=== PATIENT | male | born 2000 | race Caucasian/White ===

== ENCOUNTER 2023-06-25 13:22 | Inpatient (IN) | payer MEDICAID, SELFPAY ==
[2023-06-25] VITALS (8 sets, daily range): BP systolic 114–146; BP diastolic 64–93; PULSE 105–135; RESP 17–20; TEMP 37.3–39.4; O2SAT 94–100; BMI 36.7
--- NOTE | 2023-06-25 | ECG_ITS ---
Test Reason : fever Blood Pressure : / mmHG Vent. Rate : 126 BPM Atrial Rate : 126 BPM P-R Int : 148 ms QRS Dur : 090 ms QT Int : 288 ms P-R-T Axes : 049 020 028 degrees QTc Int : 417 ms Sinus tachycardia Nonspecific T wave abnormality Borderline ECG No previous ECGs available Referred By: Sabrina Barry Electronically Signed By:GUERLINE GOLD
--- NOTE | ~2023-06-25 | CT_ITS ---
EXAMINATION: CT ABDOMEN AND PELVIS WITH CONTRAST CLINICAL INFORMATION: Abdominal pain and bloody stool COMPARISON: None available. TECHNIQUE: Multidetector volumetric images were obtained from the superior aspect of the liver through the pubic symphysis following administration 85 mL of Omnipaque 350 intravenous contrast. Sagittal and coronal reformatted images were obtained on the technologist's workstation. Oral contrast: No This CT examination was performed using dose optimization techniques as appropriate, variously including the following: *Automated exposure control *Adjustment of mA and/or kV according to patient size (this includes techniques or standardized protocols for targeted exams where dose is matched to indication/reason for exam; i.e. extremities or head) *Use of iterative reconstruction technique DLP: 695 mGy-cm FINDINGS: LUNG BASES: The visualized lung bases are unremarkable. LIVER, GALLBLADDER, AND BILIARY TREE: The liver is normal in size, shape, and attenuation. No focal hepatic lesion or biliary ductal dilatation is present. The gallbladder is unremarkable with no evidence of radiopaque gallstones, gallbladder wall thickening, or obvious pericholecystic inflammatory changes. PANCREAS: Unremarkable. SPLEEN: Unremarkable. ADRENAL GLANDS: Unremarkable. KIDNEYS AND URETERS: The kidneys are normal in size, shape, and attenuation. No hydronephrosis, hydroureter, or calculi seen. No perinephric stranding. BLADDER: Unremarkable. GASTROINTESTINAL TRACT: The large and small bowel are normal in caliber. Hyperdense material noted within the ascending colon, hepatic flexure, and sigmoid colon. ABDOMINAL WALL: No significant hernia is appreciated. LYMPH NODES: Normal. VASCULAR: Unremarkable. PELVIC VISCERA: Unremarkable. OSSEOUS STRUCTURES: Unremarkable. CT/CT abdomen pelvis w IV con IMPRESSION: Hyperdense material noted within the ascending colon, hepatic flexure, and sigmoid colon. This is favored to be ingested material given the distribution; however, GI bleed cannot be completely excluded based on a single phase of contrast. Fleischner guidelines were followed.
--- NOTE | 2023-06-25 13:44 | ED.ABDPAIN ---
HPI - Abdominal Pain General Chief Complaint: Abdominal Pain Stated Complaint: Fever, abd pain, blood in stool Time Seen by Provider: 06/25/23 15:36 Source: patient and RN notes reviewed Mode of arrival: ambulatory Limitations: no limitations History of Present Illness HPI narrative: This is a 23-year-old male, with no known medical problems, who presents emergency department with complaints of chills, body aches, diarrhea, and diffuse abdominal pain since this morning. Patient states that yesterday he ate a taco as well as pizza and shortly after developed his symptoms. He states that this morning he woke up and has had multiple episodes of abdominal cramping, chills, body aches, and diarrhea. He denies any known fevers, chest pain, shortness of breath, cough, congestion, urinary symptoms. He states that he has had multiple episodes of bright red blood in his stool. Mother states family history of diverticulosis. No sick contacts. No other complaints or concerns at this time. MD elicited complaint: abdominal pain Pertinent past history: none Onset (ago): day(s) Pain Consistency: constant Location: diffuse Severity: moderate Quality: cramping Radiation: none Exacerbating factors: nothing Relieving factors: nothing Associated symptoms: diarrhea Related Data Home Medications ?Medication ?Instructions ?Recorded ?Confirmed No Known Home Meds 06/26/23 06/26/23 Allergies Allergy/AdvReac Type Severity Reaction Status Date / Time nut - unspecified Allergy Unknown Verified 06/25/23 13:46 Review of Systems Review of Systems Yes all other systems are reviewed and are negative Constitutional: Reports as per [facility] Social History Social History Patient Tobacco Use Status: Never used Tobacco Smoked in Last 30 Days: No Use of substances other than those prescribed or required for medical reasons: No Advance Directives: No Advance Directives Information Provided: No Nutrition Risks: No Nutritional Risk Physical Exam ED Vital Signs: Vital Signs - 24 hr 06/25/23 13:44 06/25/23 18:07 06/25/23 18:44 Temperature 99.2 F 102.9 F H 101.5 F H Pulse Rate 105 H 118 H 135 H Respiratory Rate 18 20 Blood Pressure 144/93 H 146/89 H 138/64 Pulse Oximetry 95 97 97 Oxygen Delivery Method Room Air Room Air Room Air 06/25/23 19:44 Temperature 100.2 F Pulse Rate 118 H Respiratory Rate 18 Blood Pressure Pulse Oximetry Oxygen Delivery Method BMI result Body Mass Index 36.7 Const General: cooperative, comfortable and no acute distress Orientation/consciousness: patient oriented x3 Limitations: no limitations HENMT Head: Yes normal to inspection, Yes normocephalic and Yes atraumatic Ears: hearing grossly normal bilaterally General nose exam: Normal external nose present Face and sinus: Yes normal facial exam Mouth: Normal oral and palatal mucosa present, oropharynx normal and moist mucous membranes Throat: Yes posterior oropharynx normal Eyes General: appearance normal, both eyes and all related structures Eyelids: Yes eyelids normal Conjunctivae: conjunctivae normal Sclerae: sclerae normal Pupils: Equal, round and reactive pupils present EOM: EOMs intact bilaterally Neck Neck: Yes normal visual inspection, Yes full ROM and Yes no lymphadenopathy Lymphatic: no lymphadenopathy noted Chest Chest palpation & inspection: normal inspection of the chest Resp Effort & Inspection: normal respiratory effort and able to speak in complete sentences Auscultation: clear to auscultation bilaterally, no crackles, no rales, no rhonchi and no wheezes Cardio Rate: regular rate Rhythm: regular rhythm Heart sounds: S1 normal heart sound present and S2 normal heart sound present GI Other: Diffuse lower abdominal pain noted, no rebound or guarding. Hypoactive bowel sounds present. Rectal examination performed with Susie silva tech Rectal exam with out any external hemorrhoids noted, light brown stool noted. No bloody stool noted. Inspection: Yes normal to inspection Skin General skin exam: no rashes or lesions noted Trauma: no lacerations or abrasions Wounds: no wounds Neuro General: patient oriented x3 and moves all extremities Cranial nerves: Yes Equal, round and reactive pupils present Extrem General: Yes normal to inspection Right upper extremity: normal to inspection Left upper extremity: normal to inspection Right lower extremity: normal to inspection Left lower extremity: normal to inspection Course Course Course Narrative: This is an RME: Additional HPI, ROS, PE not included below will be deferred to primary provider. Patient is a 23-year-old male who presents emergency department reporting he awoke this morning with chills, diarrhea; soft/watery stool, trialed Pepto-Bismol and Tylenol without any improvement. He reports noticing dark red blood in his stool. Has associated diffuse lower ABD pain. Reports yesterday having a slice of pizza and afternoon and a taco from [employer] at night. Denies any known sick contacts. Plan: Labs, viral testing Reevaluation(s) Reevaluation #1: He was brought to my attention that patient became febrile at 102.9, and tachycardic. Tachycardia likely due to fever, will treat with IV fluids as well as Tylenol. Infection not suspected. Patient remains nontoxic appearing, will also obtain stool occult. CT scan still pending Time: 18:10 Reevaluation #2: Patient is still febrile at 101.5, tachycardic at 135, will obtain blood cultures and lactic. Again tachycardia is likely due to fever. Rectal exam performed, no bright red blood per rectum, will send stool sample down for testing. Time: 18:44 Reevaluation #3: CT scan showing hyperdense material noted within the ascending colon, hepatic flexure and sigmoid colon. Favored to be ingested material however GI bleed can not be completely excluded based on a single phase of contrast. Stool occult positive. Time: 19:41 Additional Reevaluation(s): 1915 -I examined the stool as patient was to provide stool sample, it is not black or bloody, it is watery, and dark brown. Case reviewed with supervising physician, Dr. Hoyt, who recommends starting on azithromycin for infectious diarrhea. Does not appear to be a GI bleed as rectal examination showed light brown stool. Patient's vitals have improved, however still tachycardic. He is well appearing, feeling much better, howevr will order 3rd L of IV fluids. Stool culture and C diff panel ordered. Sign-out given to my colleague, Sowmya Hanna pending re-eval, c dif, and crp. Consultations Consultation #1: [id number]-- I received patient in sign-out pending re-evaluation, C diff and CRP. On re-evaluation, patient ill-appearing, tremulous, complaining of the chills. C diff gene negative. CRP WNL. He is now febrile to 102.2F and tachycardic to 127. Discussed case with Dr. Barry and my attending physical who both agree with admission to medicine for further evaluation and IV antibiotics. Discussed disposition with both patient and his parents. They are all agreeable. Admission orders placed. Medical Decision Making Medical Decision Making [facility] Narrative: This is a 23-year-old male, with no known medical problems, who presents emergency department for evaluation of abdominal pain, cramping, body aches, subjective fevers and chills since this morning. Patient states that he ate pizza as well as taco last night and woke up this morning with chills, body aches, diarrhea, and blood in his stool. Given slight lower abdominal tenderness, will order abdomen CT to rule out any sort of intra-abdominal process. Differential diagnoses include appendicitis, gastroenteritis, gastritis, diverticulitis, diverticulosis. Less likely small bowel obstruction, GI bleed. Plan: Labs, CT abdomen, viral swabs Differential Diagnosis Differential Diagnoses: The differential diagnosis associated with the presentation includes Gastroenteritis, gastritis, GI bleed-unlikely, viral syndrome Admission/Observation Consideration of admission/observation: Escalation of care including admission/observation considered Escalation of care including admission/observation considered however given workup today not warranted at this time. Lab Data [facility] Lab Attestation statement: I reviewed the patient's lab results. Slight leukocytosis at 13.9, electrolytes within normal limits. Influenza a, RSV, COVID negative. 06/26/23 05:39 06/26/23 05:39 Labs: Lab Results 06/25/23 06/25/23 06/25/23 Range/Units 13:53 18:42 19:10 WBC 13.9 H (4.8-10.8) X10*3/uL RBC 5.92 H (4.60-5.80) X10*6/uL Hgb 16.5 (14.0-18.0) g/dl Hct 49.7 (42.0-52.0) % MCV 84.0 (80.0-98.0) fL MCH 27.9 (27.0-33.0) pg MCHC 33.2 (31.0-36.0) g/dl RDW 13.2 (11.0-16.0) % Plt Count 208 (160-400) X10*3/uL MPV 10.3 (9.4-12.4) fL Immature Gran % (Auto) 0.3 (0.0-0.4) % Neut % (Auto) 81.8 H (45-73) % Lymph % (Auto) 9.1 L (20-40) % Carolina % (Auto) 7.7 (2-11) % Eos % (Auto) 0.6 (0-4) % Baso % (Auto) 0.5 (0-2) % Lymph # (Auto) 1.3 (1.2-4.9) X10*3/uL Carolina # (Auto) 1.1 (0.1-1.2) X10*3/uL Eos # (Auto) 0.1 (0.0-0.4) X10*3/uL Baso # (Auto) 0.1 (0.0-0.2) X10*3/uL Abs Immat Gran (auto) 0.04 H (0.00-0.03) X10*3/uL Absolute Neuts (auto) 11.3 H (2.0-8.3) x10*3/uL Absolute Nucleated RBC 0.000 (0.0-0.012) X10*3/uL Nucleated RBC % (auto) 0.0 (0.0-0.2) /100WBC Sodium 140 (135-145) mmol/L Potassium 4.2 (3.3-5.1) mmol/L Chloride 107 (96-108) mmol/L Carbon Dioxide 26 (22-29) mmol/L Anion Gap 11 L (12-20) BUN 12 (9-16) mg/dL Creatinine 0.78 (0.5-1.4) mg/dL Estim Creat Clear Calc 171.1 Estimated GFR > 60 Random Glucose 87 (60-115) mg/dL Lactic Acid 1.3 (0.5-2.0) mmol/L Calcium 9.5 (8.4-10.2) mg/dL Total Bilirubin 0.8 (0.0-1.0) mg/dL AST 20 (5-37) U/L ALT 15 (0-40) U/L Alkaline Phosphatase 65 (39-117) U/L C-Reactive Protein 0.41 (< or = 0.50) mg/dL Total Protein 7.6 (6.5-8.0) g/dL Albumin 4.3 (3.5-5.0) g/dL Stool Occult Blood POSITIVE (NEGATIVE) C. difficile Tox B Gene (Negative) Influenza Type A (PCR) NEGATIVE (Negative) Influenza Type B (PCR) NEGATIVE (Negative) RSV RNA Qual (PCR) NEGATIVE (Negative) SARS-CoV-2 RNA (RT-PCR) NEGATIVE (Negative) 06/25/23 Range/Units 20:11 WBC (4.8-10.8) X10*3/uL RBC (4.60-5.80) X10*6/uL Hgb (14.0-18.0) g/dl Hct (42.0-52.0) % MCV (80.0-98.0) fL MCH (27.0-33.0) pg MCHC (31.0-36.0) g/dl RDW (11.0-16.0) % Plt Count (160-400) X10*3/uL MPV (9.4-12.4) fL Immature Gran % (Auto) (0.0-0.4) % Neut % (Auto) (45-73) % Lymph % (Auto) (20-40) % Carolina % (Auto) (2-11) % Eos % (Auto) (0-4) % Baso % (Auto) (0-2) % Lymph # (Auto) (1.2-4.9) X10*3/uL Carolina # (Auto) (0.1-1.2) X10*3/uL Eos # (Auto) (0.0-0.4) X10*3/uL Baso # (Auto) (0.0-0.2) X10*3/uL Abs Immat Gran (auto) (0.00-0.03) X10*3/uL Absolute Neuts (auto) (2.0-8.3) x10*3/uL Absolute Nucleated RBC (0.0-0.012) X10*3/uL Nucleated RBC % (auto) (0.0-0.2) /100WBC Sodium (135-145) mmol/L Potassium (3.3-5.1) mmol/L Chloride (96-108) mmol/L Carbon Dioxide (22-29) mmol/L Anion Gap (12-20) BUN (9-16) mg/dL Creatinine (0.5-1.4) mg/dL Estim Creat Clear Calc Estimated GFR Random Glucose (60-115) mg/dL Lactic Acid (0.5-2.0) mmol/L Calcium (8.4-10.2) mg/dL Total Bilirubin (0.0-1.0) mg/dL AST (5-37) U/L ALT (0-40) U/L Alkaline Phosphatase (39-117) U/L C-Reactive Protein (< or = 0.50) mg/dL Total Protein (6.5-8.0) g/dL Albumin (3.5-5.0) g/dL Stool Occult Blood (NEGATIVE) C. difficile Tox B Gene NEGATIVE (Negative) Influenza Type A (PCR) (Negative) Influenza Type B (PCR) (Negative) RSV RNA Qual (PCR) (Negative) SARS-CoV-2 RNA (RT-PCR) (Negative) Radiology Impression Discussion of test interpretation with radiology: I have reviewed the radiologist's reading. Radiologist Impression: COMPARISON: None available. TECHNIQUE: Multidetector volumetric images were obtained from the superior aspect of the liver through the pubic symphysis following administration 85 mL of Omnipaque 350 intravenous contrast. Sagittal and coronal reformatted images were obtained on the technologist's workstation. Oral contrast: No This CT examination was performed using dose optimization techniques as appropriate, variously including the following: *Automated exposure control *Adjustment of mA and/or kV according to patient size (this includes techniques or standardized protocols for targeted exams where dose is matched to indication/reason for exam; i.e. extremities or head) *Use of iterative reconstruction technique DLP: 695 mGy-cm FINDINGS: LUNG BASES: The visualized lung bases are unremarkable. LIVER, GALLBLADDER, AND BILIARY TREE: The liver is normal in size, shape, and attenuation. No focal hepatic lesion or biliary ductal dilatation is present. The gallbladder is unremarkable with no evidence of radiopaque gallstones, gallbladder wall thickening, or obvious pericholecystic inflammatory changes. PANCREAS: Unremarkable. SPLEEN: Unremarkable. ADRENAL GLANDS: Unremarkable. KIDNEYS AND URETERS: The kidneys are normal in size, shape, and attenuation. No hydronephrosis, hydroureter, or calculi seen. No perinephric stranding. BLADDER: Unremarkable. GASTROINTESTINAL TRACT: The large and small bowel are normal in caliber. Hyperdense material noted within the ascending colon, hepatic flexure, and sigmoid colon. ABDOMINAL WALL: No significant hernia is appreciated. LYMPH NODES: Normal. VASCULAR: Unremarkable. PELVIC VISCERA: Unremarkable. OSSEOUS STRUCTURES: Unremarkable. CT/CT abdomen pelvis w IV con IMPRESSION: Hyperdense material noted within the ascending colon, hepatic flexure, and sigmoid colon. This is favored to be ingested material given the distribution; however, GI bleed cannot be completely excluded based on a single phase of contrast. Fleischner guidelines were followed. Dictated By: Aman Yates MD Independent Historian Clinical information obtained from an independent historian. History obtained from or confirmed by: Parent Medications Administered Generic Name Dose Route Start Last Admin Trade Name Freq PRN Reason Stop Dose Admin Ceftriaxone Sodium 1 gm/ 50 mls @ 100 mls/hr 06/25/23 21:45 06/25/23 22:44 Sodium Chloride IV Infused Q24H ISABELLA Infusion Metronidazole 500 mg in 100 mls @ 100 mls/hr 06/25/23 21:45 06/26/23 06:45 Flagyl IV Infused Q8H ISABELLA Infusion Pantoprazole Sodium 40 mg 06/26/23 06:30 06/26/23 05:45 Pantoprazole Sodium 40 Mg/10 Ml Vial IVPUSH 40 mg BID@0630,1630 ISABELLA Administration Sodium Chloride 3 ml 06/26/23 00:00 06/25/23 23:55 0.9 % Sodium Chloride Flush 3 Ml Syringe IVFLUSH Not Given QSHIFT ISABELLA Discontinued Medications Generic Name Dose Route Start Last Admin Trade Name Freq PRN Reason Stop Dose Admin Acetaminophen 975 mg 06/25/23 18:07 06/25/23 18:20 Acetaminophen 325 Mg Tablet PO 06/25/23 18:08 975 mg ONCE ONE Administration Enoxaparin Sodium 40 mg 06/25/23 21:45 06/25/23 22:09 Enoxaparin Sodium 40 Mg/0.4 Ml Syringe SUBCUT 40 mg Q24H ISABELLA Administration Sodium Chloride 1,000 mls @ 999 mls/hr 06/25/23 17:45 06/25/23 20:15 Ns IV 06/25/23 19:45 Infused .Q1H1M ISABELLA Infusion Sodium Chloride 1,000 mls @ 999 mls/hr 06/25/23 20:17 06/25/23 21:55 Ns IV 06/25/23 21:17 Infused .Q1H1M ONE Infusion Acetaminophen 1,000 mg in 100 mls @ 400 mls/hr 06/26/23 00:00 06/26/23 00:10 Ofirmev IV 06/26/23 00:14 Infused ONCE ONE Infusion Ibuprofen 800 mg 06/25/23 21:36 06/25/23 22:01 Ibuprofen 800 Mg Tablet PO 06/25/23 21:37 800 mg ONCE ONE Administration Iohexol 100 ml 06/25/23 17:20 06/25/23 17:20 Iohexol 350 Mg/Ml 100 Ml Infus..Btl IV 06/25/23 17:21 85 ml ONCE ONE Administration Pantoprazole Sodium 80 mg 06/25/23 21:39 06/25/23 22:09 Pantoprazole Sodium 40 Mg/10 Ml Vial IVPUSH 06/25/23 21:40 80 mg ONCE ONE Administration Critical Care Time Critical Care Time Critical Care Time: Yes Total Critical Care Time: 35 Attestation: I have personally provided critical care time exclusive of time spent on separately billable procedures. Time includes review of lab data, radiology results, discussion with consultants, and monitoring for potential decompensation. Intervention performed as documented. Discharge Plan Discharge Clinical Impression: Acute infectious diarrhea Patient Disposition: Admitted As Inpatient
[2023-06-25 13:57] LABS: MANUAL DIFF FLAG NO
[2023-06-25 13:58] LABS: Basophils Absolute Auto 0.1 X10*3/uL (0.0-0.2); Basophils Percent Auto 0.5 % (0-2); Eosinophils Absolute Auto 0.1 X10*3/uL (0.0-0.4); Eosinophils Percent Auto 0.6 % (0-4); Hematocrit 49.7 % (42.0-52.0); Hemoglobin 16.5 g/dl (14.0-18.0); Imm Gran Abs Auto 0.04 X10*3/uL (0.00-0.03); Imm Gran Pct Auto 0.3 % (0.0-0.4); Lymphocytes Absolute Auto 1.3 X10*3/uL (1.2-4.9); Lymphocytes Percent Auto 9.1 % (20-40); Mean Corpuscular HGB Conc 33.2 g/dl (31.0-36.0); Mean Corpuscular Hemoglobin 27.9 pg (27.0-33.0); Mean Platelet Volume 10.3 fL (9.4-12.4); Monocytes Absolute Auto 1.1 X10*3/uL (0.1-1.2); Monocytes Percent Auto 7.7 % (2-11); Neutrophils Absolute Auto 11.3 x10*3/uL (2.0-8.3); Neutrophils Percent Auto 81.8 % (45-73); Platelet Count 208 X10*3/uL (160-400); Red Blood Count 5.92 X10*6/uL (4.60-5.80); Red Cell Distribution Width 13.2 % (11.0-16.0); White Blood Count 13.9 X10*3/uL (4.8-10.8)
[2023-06-25 14:10] LABS: Alanine Aminotransferase 15 U/L (0-40); Albumin Level 4.3 g/dL (3.5-5.0); Alkaline Phosphatase 65 U/L (39-117); Anion Gap 11 (12-20); Aspartate Amino Transferase 20 U/L (5-37); Bilirubin Total 0.8 mg/dL (0.0-1.0); Blood Urea Nitrogen 12 mg/dL (9-16); Calcium 9.5 mg/dL (8.4-10.2); Carbon Dioxide 26 mmol/L (22-29); Chloride 107 mmol/L (96-108); Creatinine Clr Calc Pharmacy 171.1; Estimated Glomerular Filt Rate > 60; Glucose Random 87 mg/dL (60-115); Potassium 4.2 mmol/L (3.3-5.1); Sodium 140 mmol/L (135-145); Total Protein 7.6 g/dL (6.5-8.0)
[2023-06-25 14:34] LABS: Influenza A PCR NEGATIVE (Negative); Influenza B PCR NEGATIVE (Negative); Resp Syncy Virus RNA Qual PCR NEGATIVE (Negative); SARS COV2 PCR INHOUSE NEGATIVE (Negative)
[2023-06-25] MEDS: iohexoL 350 MG/ML 100 ML INFUS..BTL IV (17:20)
[2023-06-25] MEDS: 0.9 % Sodium Chloride 1,000 ML 999 ML IV ×3 (17:54→20:20)
[2023-06-25] MEDS: Acetaminophen 325 MG TABLET 975 MG PO (18:20)
[2023-06-25 18:49] LABS: OBS Int Ctl Valid YES; OBS1 POSITIVE (NEGATIVE)
--- NOTE | 2023-06-25 19:00 | PC.NURSE ---
assumed care of pt at this time. 1st ivf infused; second ivf hung. pt appears in nad; resp even and unlabored, speaking full clear sentences. pt reports chills have resolved. fever improving. pt ambulatory to bathroom with steady gait. denies cp/sob/n/v at this time. pt reports continuing to have dark red liquid stools. Marva SHINE aware. in report this RN made aware of pt meeting sirs criteria however sepsis protocol not initiated. this was confirmed with Marva SHINE. plan of care to obtain stool sample and d/c pt on infusion of ivf. pt made aware of plan of care; pt and parents in agreement. vss. call pabon within reach.
[2023-06-25 19:28] LABS: Lactic Acid 1.3 mmol/L (0.5-2.0)
[2023-06-25 20:13] LABS: C Reactive Protein 0.41 mg/dL (< or = 0.50)
[2023-06-25 21:19] LABS: CDiff Gene PCR NEGATIVE (Negative)
--- NOTE | 2023-06-25 21:30 | PC.NURSE ---
Addendum entered by Monica Meza 06/25/23 22:37: ekg obtained per order. Original Note: pt appears to have chills upon reassessing. temp rechecked, pt febrile 102.2F. Sowmya SHINE made aware. at this time plan of care to possibly admit pt, initiate iv abx, ibuprofen for fever. ivf continues to infuse per mar. bp remains wnl. pt moved into [facility] bed 5, placed on heart monitor. pt and family educated on plan of care.
[2023-06-25] MEDS: Ibuprofen 800 MG TABLET PO (22:01)
--- NOTE | 2023-06-25 22:06 | P.HPHOSP_ITS ---
History of Present Illness Date of Service: 06/25/23 Attending physician on admission: Jennifer Barry Chief Complaint: Abdominal pain Pt is a 23-year-old male with no known PMH not on home medications who presents to the ED for evaluation of abdominal pain and bloody diarrhea since this morning. Abdominal pain has been intermittent, achy and cramping, and initially suprapubic before becoming more diffuse. Has also been experiencing fever, shaking chills, intermittent diffuse body aches, and headache. Presented to the ED when first noticed some dark red blood in stool. Reports has been eating and drinking normally, denies eating anything suspicious. No sick contacts. Denies nausea, vomiting. No chest pain/pressure, palpitations. Denies shortness of breath. In the ED pt was febrile up to 102.9, tachycardic up to 135, and hypertensive up to 146/89. Labs were significant for leukocytosis of 13.9 and stool testing positive for occult blood. Otherwise labs reassuring and grossly unremarkable. Stable H&H. No electrolyte abnormalities. Renal and hepatic function WNL. Lactic acid WNL at 1.3. C diff negative. CT?of abd/pelvis showed hyperdense material noted within the ascending colon, hepatic flexure, and sigmoid colon likely to be ingested material, though GI bleed can not be completely excluded. EKG demonstrated sinus tachycardia of 126 with no evidence of significant ST elevations or depressions. Pt was treated with 3L IVF, acetaminophen, ibuprofen, Protonix, ceftriaxone, and metronidazole. Pt will be admitted to the hospital for treatment and further evaluation sepsis due to acute diarrhea, viral vs bacterial. Review of Systems 2 Review of Systems: Bloody diarrhea Fever, Rigors Suprapubic cramping abdominal pain Headache Denies nausea, vomiting No chest pain/pressure, palpitations Denies shortness of breath PMFSH Social History Patient Tobacco Use Status: Never used Tobacco Smoked in Last 30 Days: No Use of substances other than those prescribed or required for medical reasons: No Advance Directives: No Advance Directives Information Provided: No Nutrition Risks: No Nutritional Risk Meds Allergies Allergy/AdvReac Type Severity Reaction Status Date / Time nut - unspecified Allergy Unknown Verified 06/25/23 13:46 Active Medications: Current Medications Acetaminophen (Acetaminophen 325 Mg Tablet) 650 mg PO Q6H PRN PRN Reason: Pain, Mild (Pain Scale 1-3) Enoxaparin Sodium (Enoxaparin Sodium 40 Mg/0.4 Ml Syringe) 40 mg SUBCUT Q24H [facility] Acetaminophen (Ofirmev) 1,000 mg in 100 mls @ 400 mls/hr IV ONCE ONE Stop: 06/26/23 00:14 Ceftriaxone Sodium 1 gm/ (Sodium Chloride) 50 mls @ 100 mls/hr IV Q24H [facility] Metronidazole (Flagyl) 500 mg in 100 mls @ 100 mls/hr IV Q8H [facility] Melatonin (Melatonin 3 Mg Tablet) 6 mg PO BEDTIME PRN PRN Reason: Insomnia Ondansetron HCl (Ondansetron Hcl 4 Mg/2 Ml Vial) 4 mg IVPUSH Q8H PRN PRN Reason: Nausea and Vomiting Pantoprazole Sodium (Pantoprazole Sodium 40 Mg/10 Ml Vial) 40 mg IVPUSH BID@0630,1630 [facility] Sodium Chloride (0.9 % Sodium Chloride Flush 3 Ml Syringe) 3 ml IVFLUSH QSHIFT [facility] Physical Exam 2 Vital Signs and Narrative: Vital Signs: Last Vital Signs Temp 102.8 F H 06/25/23 21:58 Pulse 124 H 06/25/23 21:58 Resp 17 06/25/23 21:58 BP 139/85 06/25/23 21:58 Pulse Ox 100 06/25/23 21:58 O2 Del Method Room Air 06/25/23 21:58 BMI result Body Mass Index 36.7 Constitutional: Alert, in no acute distress. Mental Status: Oriented to person, place and time. Eyes: Pupils are equal, round, and reactive to light. Ear, Nose, and Throat: Oropharynx clear, mucous membranes moist. Ears and nose without deformities. Trachea midline. Respiratory: Clear to auscultation bilaterally. No wheezing, rales, or rhonchi. Cardiovascular: S1, S2 regular. No murmurs, rubs, or gallops. Gastrointestinal: Abdomen soft, non-tender, non-distended. Normal bowel sounds. Neurologic: Cranial nerves II-XII are grossly intact bilaterally. No focal neurological deficits. Moves all extremities spontaneously. Skin: Warm, dry. Extremities: No edema. Psychiatric: Normal mood and affect. Results Labs 06/25/23 13:53 06/25/23 13:53 Labs: Laboratory Results - last 24 hr 06/25/23 06/25/23 06/25/23 13:53 18:42 19:10 MCV 84.0 MCH 27.9 MCHC 33.2 RDW 13.2 Plt Count 208 MPV 10.3 Immature Gran % (Auto) 0.3 Neut % (Auto) 81.8 H Lymph % (Auto) 9.1 L [place] % (Auto) 7.7 Eos % (Auto) 0.6 Baso % (Auto) 0.5 Lymph # (Auto) 1.3 [place] # (Auto) 1.1 Eos # (Auto) 0.1 Baso # (Auto) 0.1 Abs Immat Gran (auto) 0.04 H Absolute Neuts (auto) 11.3 H Absolute Nucleated RBC 0.000 Nucleated RBC % (auto) 0.0 Anion Gap 11 L Estim Creat Clear Calc 171.1 Estimated GFR > 60 Random Glucose 87 Lactic Acid 1.3 Calcium 9.5 Total Bilirubin 0.8 AST 20 ALT 15 Alkaline Phosphatase 65 C-Reactive Protein 0.41 Total Protein 7.6 Albumin 4.3 Stool Occult Blood POSITIVE C. difficile Tox B Gene Influenza Type A (PCR) NEGATIVE Influenza Type B (PCR) NEGATIVE RSV RNA Qual (PCR) NEGATIVE SARS-CoV-2 RNA (RT-PCR) NEGATIVE 06/25/23 20:11 MCV MCH MCHC RDW Plt Count MPV Immature Gran % (Auto) Neut % (Auto) Lymph % (Auto) [place] % (Auto) Eos % (Auto) Baso % (Auto) Lymph # (Auto) [place] # (Auto) Eos # (Auto) Baso # (Auto) Abs Immat Gran (auto) Absolute Neuts (auto) Absolute Nucleated RBC Nucleated RBC % (auto) Anion Gap Estim Creat Clear Calc Estimated GFR Random Glucose Lactic Acid Calcium Total Bilirubin AST ALT Alkaline Phosphatase C-Reactive Protein Total Protein Albumin Stool Occult Blood C. difficile Tox B Gene NEGATIVE Influenza Type A (PCR) Influenza Type B (PCR) RSV RNA Qual (PCR) SARS-CoV-2 RNA (RT-PCR) Imaging Radiologist's Impressions: Impressions Abdomen/Pelvis CT 06/25/23 17:20 IMPRESSION: Hyperdense material noted within the ascending colon, hepatic flexure, and sigmoid colon. This is favored to be ingested material given the distribution; however, GI bleed cannot be completely excluded based on a single phase of contrast. Fleischner guidelines were followed. Assessment and Plan (1) Acute infectious diarrhea: Status: Acute Plan Pt is a 23-year-old male with no known PMH not on home medications who presents to the ED for evaluation of abdominal pain and bloody diarrhea since this morning. Pt will be admitted to the hospital for treatment and further evaluation sepsis due to acute infectious diarrhea, viral vs bacterial. Acute infectious diarrhea with sepsis Pt with bloody diarrhea, suprapubic cramping pain, F/C since this morning CT of abd/pelvis with hyperdense material in colon, favoring ingested material but cannot completely exclude GI bleed Pt meets SIRS criteria: Fever, tachycardia, leukocytosis; lactic acid WNL Patient given IVF and started on broad-spectrum antibiotics in the ED Will empirically cover with metronidazole and ceftriaxone, started 06/25/2023 Protonix IV b.i.d. C Diff negative, will check GI panel We will keep NPO GI consult Full Code Attending:?Dr. Barry DVT Prophylaxis: Pneumatic boots due to concern for possible GI bleed. Pt will require a hospitalization of at least two nights for treatment of?sepsis due to acute infectious diarrhea. Patient will require hospitalization for administration of IV antibiotics, close monitoring of CBC and electrolytes, as well as specialist consultation with Gastroenterology for possible further workup/procedures. Quality Stroke Does the patient have a stroke diagnosis?: No VTE Prior VTE?: No VTE Risk Level:: Medical - moderate - high VTE Device Contraindication: N/A - Device Ordered VTE Drug Contraindication: Treatment Not Indicated
[2023-06-25] MEDS: cefTRIAXone sodium 1 GM in 0.9 % Sodium Chloride 50 ML IV (22:07)
[2023-06-25] MEDS: Pantoprazole Sodium 40 MG/10 ML VIAL 80 MG IVPUSH (22:09)
[2023-06-25] MEDS: Enoxaparin Sodium 40 MG/0.4 ML SYRINGE SUBCUT (22:09)
[2023-06-25] MEDS: metroNIDAZOLE/NS 500 MG/100 ML PIGGYBACK 100 MG IV (22:44)
--- NOTE | 2023-06-25 23:28 | MHC.EDTECH ---
THIS PCT ASSUMED CARE OF PATIENT AT 2300 ,VITALS TAKEN ,RN AUGUSTUS IS AWARE OF PATIENT HIGH TEMP AND HIGH RESP .
--- NOTE | 2023-06-25 23:37 | PC.NURSE ---
pt remains febrile. Dr. Jhonny stone.
[2023-06-25] MEDS: Acetaminophen 1,000 MG/100 ML PIGGYBACK 400 MG IV (23:54)
[2023-06-26] VITALS (7 sets, daily range): BP systolic 108–132; BP diastolic 65–71; PULSE 89–105; RESP 13–18; TEMP 36.8–38.1; O2SAT 97–100
--- NOTE | 2023-06-26 00:05 | PC.NURSE ---
pt medicated per may for fever as well as ice packs placed behind neck and arms. Dr. Jhonny stone.
--- NOTE | 2023-06-26 05:04 | PC.NURSE ---
Addendum entered by Monica Meza 06/26/23 05:05: *[id number] Original Note: handover report given to rn mds coordinator.
[2023-06-26] MEDS: metroNIDAZOLE/NS 500 MG/100 ML PIGGYBACK 100 MG IV ×3 (05:45→21:06)
[2023-06-26] MEDS: Pantoprazole Sodium 40 MG/10 ML VIAL IVPUSH (05:45)
[2023-06-26 05:55] LABS: MANUAL DIFF FLAG NO
[2023-06-26 06:00] LABS: Basophils Absolute Auto 0.1 X10*3/uL (0.0-0.2); Basophils Percent Auto 0.5 % (0-2); Eosinophils Absolute Auto 0.2 X10*3/uL (0.0-0.4); Eosinophils Percent Auto 1.1 % (0-4); Hematocrit 49.3 % (42.0-52.0); Hemoglobin 16.1 g/dl (14.0-18.0); Imm Gran Abs Auto 0.09 X10*3/uL (0.00-0.03); Imm Gran Pct Auto 0.6 % (0.0-0.4); Lymphocytes Absolute Auto 1.2 X10*3/uL (1.2-4.9); Lymphocytes Percent Auto 8.1 % (20-40); Mean Corpuscular HGB Conc 32.7 g/dl (31.0-36.0); Mean Corpuscular Hemoglobin 27.7 pg (27.0-33.0); Mean Corpuscular Volume 84.9 fL (80.0-98.0); Mean Platelet Volume 10.5 fL (9.4-12.4); Monocytes Absolute Auto 1.2 X10*3/uL (0.1-1.2); Monocytes Percent Auto 8.2 % (2-11); Neutrophils Absolute Auto 12.1 x10*3/uL (2.0-8.3); Neutrophils Percent Auto 81.5 % (45-73); Platelet Count 185 X10*3/uL (160-400); Red Blood Count 5.81 X10*6/uL (4.60-5.80); Red Cell Distribution Width 13.5 % (11.0-16.0); White Blood Count 14.8 X10*3/uL (4.8-10.8)
[2023-06-26 06:26] LABS: Anion Gap 12 (12-20); Blood Urea Nitrogen 8 mg/dL (9-16); Calcium 8.2 mg/dL (8.4-10.2); Carbon Dioxide 23 mmol/L (22-29); Chloride 106 mmol/L (96-108); Creatinine Clr Calc Pharmacy 166.8; Estimated Glomerular Filt Rate > 60; Glucose Random 86 mg/dL (60-115); Potassium 3.6 mmol/L (3.3-5.1); Sodium 137 mmol/L (135-145)
--- NOTE | 2023-06-26 08:09 | PHA.MEDREC ---
Pharmacy Consult ? Medication Reconciliation Pharmacy has completed the medication reconciliation.
[2023-06-26] MEDS: 0.9 % Sodium Chloride Flush 3 ML SYRINGE IVFLUSH ×2 (09:39→16:55)
--- NOTE | 2023-06-26 10:26 | P.PNIM_ITS ---
Subjective Subjective Date of Service: 06/26/23 Interval History: Patient continues to have diarrhea, dark brown in color. Also with abdominal discomfort. Gastrointestinal Gastrointestinal: Reports abdominal pain and Reports loose stools Physical Exam 2 Vital Signs: Vital Signs: Last Vital Signs Temp 98.4 F 06/26/23 07:57 Pulse 102 H 06/26/23 07:57 Resp 13 06/26/23 07:57 BP 108/68 06/26/23 07:57 Pulse Ox 98 06/26/23 07:57 O2 Del Method Room Air 06/26/23 07:57 BMI result Body Mass Index 36.7 Middle-aged male lying in bed in no distress Neck supple, no JVD Regular rate and rhythm, S1-S2 heard Regular breath sounds bilaterally, no wheezing or crackles appreciated Abdomen soft nontender, no guarding, no rigidity Patient is awake, alert and oriented to self, place, time and person ; no focal motor deficit Psych: Normal mood No pedal edema Objective Data Active Medications Acetaminophen (Acetaminophen 325 Mg Tablet) 650 mg PO Q6H PRN PRN Reason: Pain, Mild (Pain Scale 1-3) Ceftriaxone Sodium 1 gm/ (Sodium Chloride) 50 mls @ 100 mls/hr IV Q24H [facility] Last Infusion: 06/25/23 22:44 Dose: Infused Documented By: WARNER Metronidazole (Flagyl) 500 mg in 100 mls @ 100 mls/hr IV Q8H [facility] Last Infusion: 06/26/23 06:45 Dose: Infused Documented By: JOSÉ MIGUEL Melatonin (Melatonin 3 Mg Tablet) 6 mg PO BEDTIME PRN PRN Reason: Insomnia Ondansetron HCl (Ondansetron Hcl 4 Mg/2 Ml Vial) 4 mg IVPUSH Q8H PRN PRN Reason: Nausea and Vomiting Pantoprazole Sodium (Pantoprazole Sodium 40 Mg/10 Ml Vial) 40 mg IVPUSH BID@0630,1630 [facility] Last Admin: 06/26/23 05:45 Dose: 40 mg Documented By: JOSÉ MIGUEL Sodium Chloride (0.9 % Sodium Chloride Flush 3 Ml Syringe) 3 ml IVFLUSH QSHIFT [facility] Last Admin: 06/26/23 09:39 Dose: 3 ml Documented By: ANTHONYVI Labs 06/26/23 05:39 06/26/23 05:39 Labs: Laboratory Results - last 24 hr 06/25/23 06/25/23 06/25/23 13:53 18:42 19:10 MCV 84.0 MCH 27.9 MCHC 33.2 RDW 13.2 Plt Count 208 MPV 10.3 Immature Gran % (Auto) 0.3 Neut % (Auto) 81.8 H Lymph % (Auto) 9.1 L [place] % (Auto) 7.7 Eos % (Auto) 0.6 Baso % (Auto) 0.5 Lymph # (Auto) 1.3 [place] # (Auto) 1.1 Eos # (Auto) 0.1 Baso # (Auto) 0.1 Abs Immat Gran (auto) 0.04 H Absolute Neuts (auto) 11.3 H Absolute Nucleated RBC 0.000 Nucleated RBC % (auto) 0.0 Anion Gap 11 L Estim Creat Clear Calc 171.1 Estimated GFR > 60 Random Glucose 87 Lactic Acid 1.3 Calcium 9.5 Total Bilirubin 0.8 AST 20 ALT 15 Alkaline Phosphatase 65 C-Reactive Protein 0.41 Total Protein 7.6 Albumin 4.3 Stool Occult Blood POSITIVE C. difficile Tox B Gene Influenza Type A (PCR) NEGATIVE Influenza Type B (PCR) NEGATIVE RSV RNA Qual (PCR) NEGATIVE SARS-CoV-2 RNA (RT-PCR) NEGATIVE 06/25/23 06/26/23 20:11 05:39 MCV 84.9 MCH 27.7 MCHC 32.7 RDW 13.5 Plt Count 185 MPV 10.5 Immature Gran % (Auto) 0.6 H Neut % (Auto) 81.5 H Lymph % (Auto) 8.1 L [place] % (Auto) 8.2 Eos % (Auto) 1.1 Baso % (Auto) 0.5 Lymph # (Auto) 1.2 [place] # (Auto) 1.2 Eos # (Auto) 0.2 Baso # (Auto) 0.1 Abs Immat Gran (auto) 0.09 H Absolute Neuts (auto) 12.1 H Absolute Nucleated RBC 0.000 Nucleated RBC % (auto) 0.0 Anion Gap 12 Estim Creat Clear Calc 166.8 Estimated GFR > 60 Random Glucose 86 Lactic Acid Calcium 8.2 L D Total Bilirubin AST ALT Alkaline Phosphatase C-Reactive Protein Total Protein Albumin Stool Occult Blood C. difficile Tox B Gene NEGATIVE Influenza Type A (PCR) Influenza Type B (PCR) RSV RNA Qual (PCR) SARS-CoV-2 RNA (RT-PCR) Assessment and Plan (1) Acute infectious diarrhea: Status: Acute Plan Pt is a 23-year-old male with no known PMH not on home medications who presents to the ED for evaluation of abdominal pain and bloody diarrhea since this morning. Pt will be admitted to the hospital for treatment and further evaluation sepsis due to acute infectious diarrhea, viral vs bacterial. Acute infectious diarrhea with sepsis Continue metronidazole and ceftriaxone, started 06/25/2023 C Diff negative, GI panel pending ?Acute GI bleed Protonix IV b.i.d. for possible GI bleed. Stool occult positive. GI consulted Full Code DVT Prophylaxis: Pneumatic boots due to concern for possible GI bleed. Reason for continued hospitalization: IV abx, evaluation of possible GI bleed. GI panel and specialist consult pending Quality Stroke Does the patient have a stroke diagnosis?: No VTE Prior VTE?: No VTE Risk Level:: Medical - moderate - high VTE Device Contraindication: N/A - Device Ordered VTE Drug Contraindication: Treatment Not Indicated
[2023-06-26 10:27] LABS: Adenovirus F 40/41 Not Detected (Not Detect.); Astrovirus Not Detected (Not Detect.); Campylobacter Not Detected (Not Detect.); Cryptosporidium Not Detected (Not Detect.); Cyclospora cayetanensis Not Detected (Not Detect.); E. coli EAEC Not Detected (Not Detect.); E. coli EPEC Not Detected (Not Detect.); E. coli ETEC Not Detected (Not Detect.); E. coli STEC Not Detected (Not Detect.); Entamoeba histolytica Not Detected (Not Detect.); Giardia lamblia Not Detected (Not Detect.); Norovirus GI/GII Not Detected (Not Detect.); Plesiomonas shigelloides Not Detected (Not Detect.); Rotavirus A Not Detected (Not Detect.); Salmonella Not Detected (Not Detect.); Sapovirus Not Detected (Not Detect.); Vibrio Not Detected (Not Detect.); Vibrio Cholerae Not Detected (Not Detect.); Yersinia enterocolitica Not Detected (Not Detect.)
[2023-06-26] MEDS: Morphine Sulfate 2 MG/ML CARTRIDGE IVPUSH ×3 (10:41→18:54)
[2023-06-26 11:32] LABS: Shigella sp./EIEC Detected (Not Detect.)
[2023-06-26] MEDS: Lactated Ringers 1,000 ML 999 ML IV (12:42)
--- NOTE | 2023-06-26 13:14 | MHC.CM.PN ---
CM MET WITH PT AT BEDSIDE IN ED. PT LIVES WITH FAMILY. PT IS WITHOUT INSURANCE, REFERRAL SENT TO [facility] [place] [facility]ENDENT AT BASELINE. PT IS EMPLOYED. +HCP PCP DR. BAEZ DP: HOME, NO SERVICES ANTICIPATED. FAMILY WILL TRANSPORT. CM WILL CONTINUE TO FOLLOW FOR ANY CHANGE TO DC PLAN/NEEDS.
--- NOTE | 2023-06-26 16:24 | P.EN_ITS ---
Event Note Date of Service: 06/26/23 Event Note: GI Consult-Full note dictated. History from patient and EMR Imp: 23 yo male with acute onset of diarrhea, rectal bleeding, and abdominal cramps as of yesterday morning, Saturday 06/24. He has tested + for Shigella on the GI panel. He describes eating pizza from [employer] for lunch on 06/23 and a taco from [employer] for dinner on 06/23. Denies any ill contacts, travel, previous antibiotic use. He does not appear toxic, his abdomen is soft and NT, and the CT does not appear worrisome. Rec: Continue antibiotics, although Flagyl can be stopped. ID consult if not improving. Clear liquids for now and advance as tolerated. I advised him that he would most likely be contacted by the Dept of Health so they can try to isolate the source of his infection. I advised him to advise family members he came in contact with yesterday and to practice strict hygiene at home and at work. He was comfortable with this plan. Thanks Time Spent With Patient Time: Total time managing care of this patient today ____ minutes.
--- NOTE | 2023-06-26 17:35 | PC.NURSE ---
pt spo2 dips into low-mid 80s while sleeping. Contacted Dr. Conroy about supplemental oxygen while asleep. Per , start with 1L o2 while sleeping.
--- NOTE | 2023-06-26 20:24 | PC.NURSE ---
this rn assumed care of pt, pt transported from em to main ed. pt denies pain, no acute distress noted, call pabon within reach.
[2023-06-26] MEDS: cefTRIAXone sodium 1 GM in 0.9 % Sodium Chloride 50 ML IV (21:05)
[2023-06-27] MEDS: Morphine Sulfate 2 MG/ML CARTRIDGE IVPUSH ×5 (01:29→23:10)
[2023-06-27 01:51] VITALS: BP 127/76; PULSE 100; RESP 20; TEMP 37; O2SAT 96
--- NOTE | 2023-06-27 02:11 | CONS_ITS ---
DATE OF SERVICE: 06/26/2023 REASON FOR CONSULTATION: Diarrhea, hematochezia, and abdominal pain. HISTORY OF PRESENT ILLNESS: The patient is a 23-year-old healthy male who was in his usual state of health up until yesterday morning when he developed the onset of some diarrhea with associated bleeding. He describes this as bright red blood. Prior to this, he had been feeling quite well. He denies any chronic GI complaints. Due to the persistence of the symptoms, he came to the ER. He has still had some diarrhea mixed with blood since he has been in the ER. He denies any vomiting. He describes some lower abdominal cramping and discomfort on both sides of the abdomen, although more so on the right. He denies any signs of jaundice. He did have a temperature as high as 102.8 in the ER. He has had a low-grade temperature today. Vital signs have otherwise been stable. He denies any previous GI complaints similar to this. He denies any known family history of inflammatory bowel disease, nor GI malignancy. His workup here has included a GI panel, which has returned positive for Shigella. Stool for C difficile was negative. He denies any ill contacts, travel, nor any recent antibiotic use. The day before he became ill he describes having pizza from a restaurant called [employer], and a taco the night before he became ill from [employer]. As far as he knows, no one else became ill. MEDICATIONS: Medications at home none. Medications here in the hospital include acetaminophen p.r.n., IV ceftriaxone, IV Flagyl, morphine p.r.n., Zofran p.r.n. PAST MEDICAL HISTORY: He denies any medical problems such as diabetes, heart disease, or asthma. PAST SURGICAL HISTORY: He denies any significant surgeries. SOCIAL HISTORY: He is single. He does not smoke nor use any significant amounts of alcohol. 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 REVIEW OF SYSTEMS: CONSTITUTIONAL: Prior to yesterday, he was feeling well with good energy good appetite. SKIN: No rash, no pruritus. CARDIAC: No chest pain. PULMONARY: No coughing or hemoptysis. GI: As above. URINARY: No dysuria, no hematuria. NEUROLOGIC: No headache or seizures. PHYSICAL EXAMINATION: GENERAL: The patient is a pleasant, alert, well-appearing male. Temperature and vital signs as above. SKIN: Warm and dry. Anicteric sclerae. Moist mucous membranes. CHEST: Clear. CARDIAC: Normal S1, S2. ABDOMEN: Soft, nondistended, normal bowel sounds. He does have some mild tenderness to palpation along the lower abdomen but without mass rebound or guarding. EXTREMITIES: Without edema. LABORATORIES: Positive Shigella on the GI panel as above. White blood cell count 14.8, hemoglobin 16.1, platelets 185,000 normal electrolytes BUN 8, creatinine 0.8. LFTs normal. C-reactive protein is 0.4. Stool was hemoccult positive. He did have a CT of the abdomen and pelvis describing some possible blood and/or stool in the colon. There was no evidence of obvious colitis nor other abnormalities. IMPRESSION: Given the patient's clinical history this certainly seems consistent with an infectious colitis from Shigella, probably from 1 of the restaurants he ate from. At this point, he appears stable. I would continue treatment with ceftriaxone. I would obtain an Infectious Disease consult if things worsen or persist. I do not think he needs any type of endoscopic intervention nor surgical intervention at this time. I did advise him that he most likely would be hearing from the Department of Health due to the Shigella infection. I did advise him to be sure to tell all family members that he has been in contact with. I did advise him to practice strict hygiene at home and at work. Since he works in a healthcare office, I did advise him to advise his workplace of his infection to be sure he gets cleared for work. The patient understood and was comfortable with this plan. Please advise me if I can be of any further assistance. MD RADHA Sands/ZURI / [phone] JAIDA
--- NOTE | 2023-06-27 04:51 | PC.NURSE ---
CONTACT PRECAUTIONS : Comes in with abd pain and bloody stool since this am. Positive for Shigella and positive occult blood. Met SIRS - as presented with fever, tachy , and wbc 14.8. Plan : GI consult, liquid diet, flagyl and protonix. 20 RAC
[2023-06-27] MEDS: metroNIDAZOLE/NS 500 MG/100 ML PIGGYBACK 100 MG IV (05:30)
[2023-06-27 06:18] VITALS: BP 108/63; PULSE 96; RESP 17; TEMP 37.2; O2SAT 98
[2023-06-27 06:27] LABS: MANUAL DIFF FLAG NO
[2023-06-27 06:32] LABS: Basophils Percent Auto 0.3 % (0-2); Eosinophils Percent Auto 0.4 % (0-4); Hematocrit 46.4 % (42.0-52.0); Hemoglobin 15.1 g/dl (14.0-18.0); Imm Gran Abs Auto 0.04 X10*3/uL (0.00-0.03); Imm Gran Pct Auto 0.4 % (0.0-0.4); Lymphocytes Percent Auto 21.3 % (20-40); Mean Corpuscular HGB Conc 32.5 g/dl (31.0-36.0); Mean Corpuscular Hemoglobin 27.8 pg (27.0-33.0); Mean Corpuscular Volume 85.5 fL (80.0-98.0); Mean Platelet Volume 10.7 fL (9.4-12.4); Monocytes Absolute Auto 1.1 X10*3/uL (0.1-1.2); Monocytes Percent Auto 11.6 % (2-11); Neutrophils Absolute Auto 6.2 x10*3/uL (2.0-8.3); Platelet Count 171 X10*3/uL (160-400); Red Blood Count 5.43 X10*6/uL (4.60-5.80); Red Cell Distribution Width 13.3 % (11.0-16.0); White Blood Count 9.4 X10*3/uL (4.8-10.8)
[2023-06-27 06:41] LABS: Anion Gap 13 (12-20); Blood Urea Nitrogen 9 mg/dL (9-16); Calcium 8.5 mg/dL (8.4-10.2); Carbon Dioxide 21 mmol/L (22-29); Chloride 106 mmol/L (96-108); Creatinine Clr Calc Pharmacy 160.8; Estimated Glomerular Filt Rate > 60; Glucose Random 69 mg/dL (60-115); Potassium 3.6 mmol/L (3.3-5.1); Sodium 136 mmol/L (135-145)
[2023-06-27] MEDS: 0.9 % Sodium Chloride Flush 3 ML SYRINGE IVFLUSH ×3 (08:49→21:42)
[2023-06-27 10:46] VITALS: BP 125/80; PULSE 96; RESP 20; TEMP 36.4; O2SAT 97
--- NOTE | 2023-06-27 11:15 | P.PNIM_ITS ---
Subjective Subjective Date of Service: 06/27/23 Interval History: Patient continues to have about 5 episodes of diarrhea per day with abdominal cramps. Had an episode of fever 100.6 yesterday Review of Systems Bloody diarrhea Fever, Rigors Suprapubic cramping abdominal pain Headache Denies nausea, vomiting No chest pain/pressure, palpitations Denies shortness of breath Constitutional Constitutional: Reports as per HPI Gastrointestinal Gastrointestinal: Reports abdominal pain and Reports loose stools Physical Exam 2 Vital Signs: Vital Signs: Last Vital Signs Temp 97.5 F 06/27/23 10:46 Pulse 96 06/27/23 10:46 Resp 20 06/27/23 10:46 BP 125/80 06/27/23 10:46 Pulse Ox 97 06/27/23 10:46 O2 Del Method Room Air 06/27/23 10:46 BMI result Body Mass Index 36.7 Middle-aged male lying in bed in no distress Neck supple, no JVD Regular rate and rhythm, S1-S2 heard Regular breath sounds bilaterally, no wheezing or crackles appreciated Abdomen soft nontender, no guarding, no rigidity Patient is awake, alert and oriented to self, place, time and person ; no focal motor deficit Psych: Normal mood No pedal edema Objective Data Active Medications Acetaminophen (Acetaminophen 325 Mg Tablet) 650 mg PO Q6H PRN PRN Reason: Pain, Mild (Pain Scale 1-3) Ceftriaxone Sodium 1 gm/ (Sodium Chloride) 50 mls @ 100 mls/hr IV Q24H [facility] Last Infusion: 06/26/23 21:35 Dose: Infused Documented By: GENNY Melatonin (Melatonin 3 Mg Tablet) 6 mg PO BEDTIME PRN PRN Reason: Insomnia Morphine Sulfate (Morphine Sulfate 2 Mg/Ml Cartridge) 2 mg IVPUSH Q4H PRN; Protocol PRN Reason: Pain, Severe (Pain Scale 7-10) Last Admin: 06/27/23 08:45 Dose: 2 mg Documented By: MARTIN Ondansetron HCl (Ondansetron Hcl 4 Mg/2 Ml Vial) 4 mg IVPUSH Q8H PRN PRN Reason: Nausea and Vomiting Sodium Chloride (0.9 % Sodium Chloride Flush 3 Ml Syringe) 3 ml IVFLUSH [facility] Last Admin: 06/27/23 08:49 Dose: 3 ml Documented By: HO.CONND Labs 06/27/23 04:46 06/27/23 04:46 Labs: Laboratory Results - last 24 hr 06/25/23 06/27/23 20:11 04:46 MCV 85.5 MCH 27.8 MCHC 32.5 RDW 13.3 Plt Count 171 MPV 10.7 Immature Gran % (Auto) 0.4 Neut % (Auto) 66.0 Lymph % (Auto) 21.3 [place] % (Auto) 11.6 H Eos % (Auto) 0.4 Baso % (Auto) 0.3 Lymph # (Auto) 2.0 [place] # (Auto) 1.1 Eos # (Auto) 0.0 Baso # (Auto) 0.0 Abs Immat Gran (auto) 0.04 H Absolute Neuts (auto) 6.2 Absolute Nucleated RBC 0.000 Nucleated RBC % (auto) 0.0 Anion Gap 13 Estim Creat Clear Calc 160.8 Estimated GFR > 60 Random Glucose 69 Calcium 8.5 Stl C. cayetanensis PCR Not Detected Stool Rotavirus A PCR Not Detected Stl Adenov F 40/41 PCR Not Detected Stool Astrovirus (PCR) Not Detected Stool Campylobacter PCR Not Detected Stool Cryptosporidium PCR Not Detected Stl Sh Tox Pr E STEC PCR Not Detected Stool E coli O157 PCR Not applicable Stl Enterotoxigenic E PCR Not Detected Stool EPEC (PCR) Not Detected Stool EAEC (PCR) Not Detected Stl E. histolytica PCR Not Detected Stool Giardia Lamblia PCR Not Detected Stl P. shigelloides PCR Not Detected Stool Salmonella PCR Not Detected Stool Sapovirus (PCR) Not Detected Stl Shigella/EIEC PCR Detected A St Y.enterocolitica PCR Not Detected Stool Vibrio (PCR) Not Detected Stl Vibrio cholerae PCR Not Detected Stl Norovirus GI/GII PCR Not Detected Microbiology Microbiology Results: Microbiology 06/25/23 19:16 Blood Culture - Preliminary Blood - Venous No growth after 24 hours. 06/25/23 19:10 Blood Culture - Preliminary Blood - Venous No growth after 24 hours. Assessment and Plan (1) Acute infectious diarrhea: Status: Acute Plan Pt is a 23-year-old male with no known PMH not on home medications who presents to the ED for evaluation of abdominal pain and bloody diarrhea since this morning. Pt will be admitted to the hospital for treatment and further evaluation sepsis due to acute infectious diarrhea, viral vs bacterial. Acute infectious diarrhea with sepsis due to Shigella/EIEC Continue ceftriaxone, initiated 06/24 ; Flagyl D/C Monitor for improvement. ID consult in case of worsening Full Code DVT Prophylaxis: Mechanical. Patient is ambulatory Reason for continued hospitalization: IV abx. Quality Stroke Does the patient have a stroke diagnosis?: No VTE Prior VTE?: No VTE Risk Level:: Medical - moderate - high VTE Device Contraindication: Treatment Not Indicated VTE Drug Contraindication: Treatment Not Indicated
[2023-06-27 13:20] VITALS: BMI 35.3
[2023-06-27 15:15] VITALS: BP 124/68; PULSE 80; RESP 20; TEMP 36.7; O2SAT 98
[2023-06-27 19:43] VITALS: BP 144/84; PULSE 94; RESP 20; TEMP 36.8; O2SAT 98
[2023-06-27] MEDS: cefTRIAXone sodium 1 GM in 0.9 % Sodium Chloride 50 ML IV (21:42)
[2023-06-28 03:57] VITALS: BP 118/55; PULSE 58; RESP 18; TEMP 36.8; O2SAT 98
[2023-06-28 07:13] VITALS: BP 133/63; PULSE 74; RESP 18; TEMP 36.6; O2SAT 98
[2023-06-28] MEDS: 0.9 % Sodium Chloride Flush 3 ML SYRINGE IVFLUSH ×2 (07:48→15:33)
--- NOTE | 2023-06-28 10:34 | MHC.CM.PN ---
Per ROUNDS discussion, Patient is not yet medically cleared for dc (IV ABT, IV Morphine for pain); home is the goal and CM will continue to follow.
[2023-06-28 11:35] VITALS: BP 122/71; PULSE 74; RESP 18; TEMP 36.5; O2SAT 97
[2023-06-28 15:02] VITALS: BP 138/92; PULSE 70; RESP 18; TEMP 36.9; O2SAT 97
--- NOTE | 2023-06-28 15:27 | P.PNIM_ITS ---
Subjective Subjective Date of Service: 06/28/23 Interval History: Stools slowly lessening. Still with vague abdominal pain with p.o. intake Review of Systems Denies chest pain Denies shortness of breath Admits to nausea no vomiting persistent diarrhea Denies fever chills Physical Exam 2 Vital Signs: Vital Signs: Last Vital Signs Temp 98.4 F 06/28/23 15:02 Pulse 70 06/28/23 15:02 Resp 18 06/28/23 15:02 BP 138/92 H 06/28/23 15:02 Pulse Ox 97 06/28/23 15:02 O2 Del Method Room Air 06/28/23 15:02 BMI result Body Mass Index 35.3 Const: Other: Awake alert no acute distress Resp: Other: Clear to auscultation bilaterally no rales rhonchi or wheezes Cardio: Other: No S4; positive S1-S2; no S3 murmurs rubs or gallops GI: Other: Soft nontender nondistended normoactive bowel sounds Extrem: Other: No edema bilaterally Objective Data Active Medications Acetaminophen (Acetaminophen 325 Mg Tablet) 650 mg PO Q6H PRN PRN Reason: Pain, Mild (Pain Scale 1-3) Ceftriaxone Sodium 1 gm/ (Sodium Chloride) 50 mls @ 100 mls/hr IV Q24H [facility] Last Infusion: 06/27/23 23:07 Dose: Infused Documented By: PAULA Melatonin (Melatonin 3 Mg Tablet) 6 mg PO BEDTIME PRN PRN Reason: Insomnia Morphine Sulfate (Morphine Sulfate 2 Mg/Ml Cartridge) 2 mg IVPUSH Q4H PRN; Protocol PRN Reason: Pain, Severe (Pain Scale 7-10) Last Admin: 06/27/23 23:10 Dose: 2 mg Documented By: PAULA Ondansetron HCl (Ondansetron Hcl 4 Mg/2 Ml Vial) 4 mg IVPUSH Q8H PRN PRN Reason: Nausea and Vomiting Sodium Chloride (0.9 % Sodium Chloride Flush 3 Ml Syringe) [facility] Last Admin: 06/28/23 07:48 Dose: 3 ml Documented By: MARIBEL Labs 06/27/23 04:46 06/27/23 04:46 Microbiology Microbiology Results: Microbiology 06/25/23 19:16 Blood Culture - Preliminary Blood - Venous No growth after 48 hours. 06/25/23 19:10 Blood Culture - Preliminary Blood - Venous No growth after 48 hours. Assessment and Plan (1) Acute infectious diarrhea: Status: Acute Plan Pt is a 23-year-old male with no known PMH not on home medications who presents to the ED for evaluation of abdominal pain and bloody diarrhea since this morning. Pt will be admitted to the hospital for treatment and further evaluation sepsis due to acute infectious diarrhea, Shigella by culture 1.Acute infectious diarrhea with sepsis(resolved) due to Shigella/EIEC -ceftriaxone(4) -id consult Full Code Mechanical. Patient is ambulatory Reason for continued hospitalization: IV abx. Quality Stroke Does the patient have a stroke diagnosis?: No VTE Prior VTE?: No VTE Risk Level:: Medical - moderate - high VTE Device Contraindication: Treatment Not Indicated VTE Drug Contraindication: Treatment Not Indicated
[2023-06-28 20:00] VITALS: BP 122/67; PULSE 64; RESP 16; TEMP 36.7; O2SAT 97
[2023-06-28] MEDS: cefTRIAXone sodium 1 GM in 0.9 % Sodium Chloride 50 ML IV (21:45)
--- NOTE | 2023-06-28 23:55 | P.CNID_ITS ---
History of Present Illness Data of Consult Service Date: 06/28/23 Requesting physician: Cash Mojica Primary Care Provider: Yohannes Dotson I, MD HPI Reason for consult: shigella stool He presents with some dark colored diarrhea as well as abdominal cramping and discomfort since morning. He has anorexia as well. He lives with grandmother and she is healthy. He denies travel or sick contacts. He has no unusual food exposures. Review of Systems 2 Review of Systems: Yes all other systems are reviewed and are negative Gastrointestinal: Gastrointestinal: Reports bloating, Reports GI cramping and Reports diarrhea PMFSH Family History Family history: reviewed and not pertinent Social History Social History Household Members: Family Housing: House Do you presently have visiting nurse or other home services: No Patient Tobacco Use Status: Never used Tobacco service: No Meds Allergies Allergy/AdvReac Type Severity Reaction Status Date / Time nut - unspecified Allergy Unknown Verified 06/25/23 13:46 Active Medications: Current Medications Acetaminophen (Acetaminophen 325 Mg Tablet) 650 mg PO Q6H PRN PRN Reason: Pain, Mild (Pain Scale 1-3) Ceftriaxone Sodium 1 gm/ (Sodium Chloride) 50 mls @ 100 mls/hr IV Q24H [facility] Last Infusion: 06/27/23 23:07 Dose: Infused Melatonin (Melatonin 3 Mg Tablet) 6 mg PO BEDTIME PRN PRN Reason: Insomnia Morphine Sulfate (Morphine Sulfate 2 Mg/Ml Cartridge) 2 mg IVPUSH Q4H PRN; Protocol PRN Reason: Pain, Severe (Pain Scale 7-10) Last Admin: 06/27/23 23:10 Dose: 2 mg Ondansetron HCl (Ondansetron Hcl 4 Mg/2 Ml Vial) 4 mg IVPUSH Q8H PRN PRN Reason: Nausea and Vomiting Sodium Chloride (0.9 % Sodium Chloride Flush 3 Ml Syringe) 3 ml IVFLUSH QSHIFT [facility] Last Admin: 06/28/23 15:33 Dose: 3 ml Home Medications ?Medication ?Instructions ?Recorded ?Confirmed ?Last Taken ?Type No Known Home Meds 06/26/23 06/26/23 Unknown History Physical Exam 2 Vital Signs: Vital Signs: Last Vital Signs Temp 98.1 F 06/28/23 20:00 Pulse 64 06/28/23 20:00 Resp 16 04/17/24 20:00 BP 122/67 06/28/23 20:00 Pulse Ox 97 06/28/23 20:00 O2 Del Method Room Air 06/28/23 20:00 BMI result Body Mass Index 35.3 Const: General: cooperative HEENT: Head: Yes normal to inspection Face and sinus: Yes normal facial exam Mouth: Normal oral and palatal mucosa present Teeth and gingiva: d entition normal Eyes: General: appearance normal, both eyes and all related structures P upils: Equal, round and reactive pupils present Resp: Effort & Inspection: normal respiratory effort Cardio: Rate: regular rate Rhythm: regular rhythm GI: Palpation (GI): Soft to palpation and nontender Percussion: Yes dullness to percussion : General: Yes no CVA tenderness Back/Spine/Pelvis: Back: no CVA tenderness Skin: General skin exam: no rashes or lesions noted Neuro: General: moves all extremities Cranial nerves: Yes Equal, round and reactive pupils present Extrem: General: Yes normal to inspection Psych: Appearance: grossly normal Results Labs 06/27/23 04:46 06/27/23 04:46 Microbiology Microbiology Results: Microbiology 06/25/23 19:16 Blood - Venous Blood Culture - Preliminary No growth after 48 hours. 06/25/23 19:10 Blood - Venous Blood Culture - Preliminary No growth after 48 hours. Assessment and Plan (1) Acute infectious diarrhea: Status: Acute Plan He has shigella which is highly contagious,very low quantitity bacteria to cause acute illness. He has no known exposure but this also often occurs in outbreaks through contact. Shigella can be STI through exposure to partners as well,whether they be male or female,although he denies recent exposure. He still has diarrhea and Cdiff negative. Would continue Ceftriaxone as likely sensitive (sent to state hopefully so can check final sensitivities but if not improving consider changing to quinolone like Levaquin 750 mg daily for 7 days ,otherwise if better seven days cephalosporin. Check HIV test due to severity of illness causing hospitalization and ongoing morbidity. 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
[2023-06-29] MEDS: Melatonin 3 MG TABLET 6 MG PO ×2 (00:28→22:48)
[2023-06-29 03:36] VITALS: BP 127/61; PULSE 60; RESP 18; TEMP 36.5; O2SAT 96
[2023-06-29 07:52] VITALS: BP 107/58; PULSE 58; RESP 20; TEMP 36.6; O2SAT 98
[2023-06-29] MEDS: 0.9 % Sodium Chloride Flush 3 ML SYRINGE IVFLUSH ×3 (08:36→22:54)
[2023-06-29] MEDS: ondansetron HCL 4 MG/2 ML VIAL IVPUSH (08:40)
[2023-06-29 08:41] LABS: HIV AB/AG Nonreactive (Nonreactive); HIV Num 1 0.34 S/CO (0.00-0.99); ~HepC Num1 0.08 S/CO (0.00-0.79); ~Hepatitis C Antibody Nonreactive (Nonreactive)
[2023-06-29 12:00] VITALS: BP 110/75; PULSE 62; RESP 20; TEMP 36.2; O2SAT 97
--- NOTE | 2023-06-29 14:52 | P.PNIM_ITS ---
Subjective Subjective Date of Service: 06/29/23 Interval History: Improving from stooling aspect. Asking for advance of diet. Review of Systems Denies chest pain Denies shortness of breath Admits to nausea no vomiting persistent diarrhea Denies fever chills Physical Exam 2 Vital Signs: Vital Signs: Last Vital Signs Temp 97.2 F 06/29/23 12:00 Pulse 62 06/29/23 12:00 Resp 20 06/29/23 12:00 BP 110/75 06/29/23 12:00 Pulse Ox 97 06/29/23 12:00 O2 Del Method Room Air 06/29/23 12:00 BMI result Body Mass Index 35.3 Const: Other: Awake alert no acute distress Resp: Other: Clear to auscultation bilaterally no rales rhonchi or wheezes Cardio: Other: No S4; positive S1-S2; no S3 murmurs rubs or gallops GI: Other: Soft nontender nondistended normoactive bowel sounds Extrem: Other: No edema bilaterally Objective Data Active Medications Acetaminophen (Acetaminophen 325 Mg Tablet) 650 mg PO Q6H PRN PRN Reason: Pain, Mild (Pain Scale 1-3) Ceftriaxone Sodium 1 gm/ (Sodium Chloride) 50 mls @ 100 mls/hr IV Q24H [facility] Last Infusion: 06/28/23 23:00 Dose: Infused Documented By: GOLDEN Melatonin (Melatonin 3 Mg Tablet) 6 mg PO BEDTIME PRN PRN Reason: Insomnia Last Admin: 06/29/23 00:28 Dose: 6 mg Documented By: GOLDEN Comments: pt requested for sleep Morphine Sulfate (Morphine Sulfate 2 Mg/Ml Cartridge) 2 mg IVPUSH Q4H PRN; Protocol PRN Reason: Pain, Severe (Pain Scale 7-10) Last Admin: 06/27/23 23:10 Dose: 2 mg Documented By: PAULA Ondansetron HCl (Ondansetron Hcl 4 Mg/2 Ml Vial) 4 mg IVPUSH Q8H PRN PRN Reason: Nausea and Vomiting Last Admin: 06/29/23 08:40 Dose: 4 mg Documented By: THIERRY Sodium Chloride (0.9 % Sodium Chloride Flush 3 Ml Syringe) 3 ml IVFLUSH [facility] Last Admin: 06/29/23 08:36 Dose: 3 ml Documented By: THIERRY Labs 06/27/23 04:46 06/27/23 04:46 Labs: Laboratory Results - last 24 hr 06/28/23 16:56 Hepatitis C Ab (EIA) Nonreactive HIV 1&2 Ab/P24 Ag 4thGn Nonreactive Assessment and Plan (1) Acute infectious diarrhea: Status: Acute Plan Pt is a 23-year-old male with no known PMH not on home medications who presents to the ED for evaluation of abdominal pain and bloody diarrhea since this morning. Pt will be admitted to the hospital for treatment and further evaluation sepsis due to acute infectious diarrhea, Shigella by culture 1.Acute infectious diarrhea with sepsis(resolved) due to Shigella/EIEC -ceftriaxone(5) -HIV/hep C negative Full Code Mechanical. Patient is ambulatory Reason for continued hospitalization: IV abx. Quality Stroke Does the patient have a stroke diagnosis?: No VTE Prior VTE?: No VTE Risk Level:: Medical - moderate - high VTE Device Contraindication: Treatment Not Indicated VTE Drug Contraindication: Treatment Not Indicated
[2023-06-29 15:49] VITALS: BP 128/78; PULSE 97; RESP 20; TEMP 36.1; O2SAT 96
[2023-06-29 19:56] VITALS: BP 124/71; PULSE 77; RESP 18; TEMP 36.5; O2SAT 97
[2023-06-29] MEDS: cefTRIAXone sodium 1 GM in 0.9 % Sodium Chloride 50 ML IV (22:45)
[2023-06-30 03:42] VITALS: BP 122/64; PULSE 64; RESP 18; TEMP 36.1; O2SAT 97
[2023-06-30 07:42] VITALS: BP 110/58; PULSE 61; RESP 20; TEMP 36.3; O2SAT 97
[2023-06-30] MEDS: 0.9 % Sodium Chloride Flush 3 ML SYRINGE IVFLUSH (09:01)
--- NOTE | 2023-06-30 13:17 | PM.DS ---
DS: Providers Provider Date of Service: 06/30/23 Date of admission: 06/25/23 20:49 Date of discharge: 06/30/23 Primary care physician: Yohannes Dotson I, MD Consults: 06/28/23 15:26 Consult to Infectious Diseases Routine Consulting Provider: [facility] Infectious Disease Reason for consultation: marcello Has provider been notified: Yes DS: Diagnosis Discharge Diagnosis (1) Acute infectious diarrhea: Status: Acute DS: Summary Hospital Course Hospital Course: 23-year-old male with no known PMH not on home medications who presents to the ED for evaluation of abdominal pain and bloody diarrhea since this morning. Abdominal pain has been intermittent, achy and cramping, and initially suprapubic before becoming more diffuse. Has also been experiencing fever, shaking chills, intermittent diffuse body aches, and headache. Presented to the ED when first noticed some dark red blood in stool. Reports has been eating and drinking normally, denies eating anything suspicious. No sick contacts. Denies nausea, vomiting. No chest pain/pressure, palpitations. Denies shortness of breath. In the ED pt was febrile up to 102.9, tachycardic up to 135, and hypertensive up to 146/89. Labs were significant for leukocytosis of 13.9 and stool testing positive for occult blood. Otherwise labs reassuring and grossly unremarkable. Stable H&H. No electrolyte abnormalities. Renal and hepatic function WNL. Lactic acid WNL at 1.3. C diff negative. CT?of abd/pelvis showed hyperdense material noted within the ascending colon, hepatic flexure, and sigmoid colon likely to be ingested material, though GI bleed can not be completely excluded. EKG demonstrated sinus tachycardia of 126 with no evidence of significant ST elevations or depressions. Pt was treated with 3L IVF, acetaminophen, ibuprofen, Protonix, ceftriaxone, and metronidazole. Pt will be admitted to the hospital for treatment and further evaluation sepsis due to acute diarrhea, viral vs bacterial. Hospital Course Patient admitted to general medical floor and maintained on volume repletion intravenously. Ultimately stools came back positive for Shigella for which she was started on ceftriaxone. He was seen in consultation by ID who recommended HIV and hep C both of which were negative. Also recommended once diarrhea subsided patient could be discharged home. 24 hours prior to discharge patient stools began to firm up and he was without abdominal pain and tolerating a diet. At this point he is medically acceptable discharged home complete a 2 week course of Ceftin. He can follow up with his PCP next available Time Attestation Discharge Coordination Time (in mins): 35 Quality: Safe Use of Opioids Does Pt have an Active Cancer Diagnosis on the Problem List?: No Quality: Stroke Does the patient have a stroke diagnosis?: No Physical Exam Vital Signs: Vital Signs: Last Vital Signs Temp 97.3 F 06/30/23 07:42 Pulse 61 06/30/23 07:42 Resp 20 06/30/23 07:42 BP 110/58 L 06/30/23 07:42 Pulse Ox 97 06/30/23 07:42 O2 Del Method Room Air 06/30/23 07:42 BMI result Body Mass Index 35.3 Const: Other: Awake alert no acute distress Resp: Other: Clear to auscultation bilaterally no rales rhonchi or wheezes Cardio: Other: No S4; positive S1-S2; no S3 murmurs rubs or gallops GI: Other: Soft nontender nondistended normoactive bowel sounds Extrem: Other: No edema bilaterally DS: Data Data Completed and Pending Labs on day of discharge: Preliminary micro results at discharge 06/25/23 19:16 Blood Culture - Preliminary Blood - Venous No growth after 48 hours. 06/25/23 19:10 Blood Culture - Preliminary Blood - Venous No growth after 48 hours. Discharge Plan Discharge Anticipated Discharge Date/Time: 06/30/23 13:14 Patient Disposition: Home, Self-Care Discharge Diagnosis: Shigella diarrhea Referrals: Yohannes Dotson MD [Primary Care Provider] - 1 Week Discharge Medications: New cefuroxime axetil 500 mg tablet 500 mg PO BID 14 Days Qty: 28 0RF Discharge Orders: Discharge Order (Routine); Ordered 06/30/23 Ordered By: Cash Mojica Diet: Advance to usual diet Activity on Discharge: As tolerated Stand Alone Forms: Patient Portal Discharge page, Work/School Release Print Language: German Activity Restrictions/Additional Instructions: You were seen in the emergency department due to diarrhea and abdominal pain. Your labs are reassuring. You likely have an infection due to the food you consumed or a virus. It is very important that you stay well hydrated, stick to a bland diet, avoid spicy or fried foods. Advance her diet as tolerated. If any new or worsening symptoms occur including but not limited to worsening abdominal pain, tarry/black stool, bright red blood, dizziness, or any other worsening symptoms, please return for re-evaluation. Care Plan Goals: Complete course of Ceftin twice daily as ordered Health Concerns: Follow-up with PCP next available Plan of Treatment: May return to work when no further loose stools. Work note given Assessment: See discharge summary Patient Instructions: Acute Diarrhea (ED)
--- NOTE | 2023-06-30 13:41 | MHC.CM.PN ---
Patient is discharged to home self care. He has arranged for a family member to provide transport home.
== END 2023-06-30 14:20 | disposition home or self-care (01) | DRG 720 ==
LOC: HO.ED 20:21 → HO.EDOVER 21:57 → HO.IMC 06-27 07:39
PROVIDERS: Internal Medicine; Nurse Practitioner Family; Physician Assistant Medical; Admitting Provider Student in an Organized Health Care Education/Training Program; Emergency Provider Emergency Medicine; PCP Internal Medicine; Visit Provider Hospitalist
DX: A41.9 Sepsis, unspecified organism (principal); A03.9 Shigellosis, unspecified; K62.5 Hemorrhage of anus and rectum; Z20.822 Contact with and (suspected) exposure to COVID-19
CPT/HCPCS: 0241U; 36415; 74177; 80048; 80053; 82272; 83605; 85025; 86140; 86803; 87040; 87389; 87493; 87507; 93005; 99285; C9113; J0131; J0696; J1650; J1836; J2270; J2405; J7120; Q9967

== ENCOUNTER 2023-06-25 20:49 | Outpatient (BNV) | payer MEDICAID, SELFPAY | END 2023-06-25 22:06 | PROVIDERS: Admitting Provider Student in an Organized Health Care Education/Training Program; Emergency Provider Emergency Medicine; Visit Provider Internal Medicine | DX: R00.0 Tachycardia, unspecified (principal) | CPT/HCPCS: 93010 ==

== ENCOUNTER → 2023-06-25 20:49 | Outpatient (BNV) | payer MEDICAID, SELFPAY | PROVIDERS: Admitting Provider Student in an Organized Health Care Education/Training Program; Emergency Provider Emergency Medicine; Visit Provider Student in an Organized Health Care Education/Training Program | DX: A09 Infectious gastroenteritis and colitis, unspecified (principal) | CPT/HCPCS: 99223; 99232; 99239 ==

== ENCOUNTER → 2023-06-25 20:49 | Outpatient (BNV) | payer MEDICAID, SELFPAY | PROVIDERS: Admitting Provider Student in an Organized Health Care Education/Training Program; Emergency Provider Emergency Medicine; PCP Internal Medicine; Visit Provider Internal Medicine | DX: A09 Infectious gastroenteritis and colitis, unspecified (principal) | CPT/HCPCS: 99222 ==

== ENCOUNTER 2024-01-31 15:19 | Outpatient (REF) | payer OTHER, SELFPAY | END 2024-01-31 15:20 | disposition home or self-care (01) | LOC: HO.US 15:19 | PROVIDERS: PCP Internal Medicine; Visit Provider Urology | DX: N20.0 Calculus of kidney (principal) | CPT/HCPCS: 76775 ==

== ENCOUNTER 2024-02-07 13:54 | Outpatient (AMB) | payer OTHER, SELFPAY ==
--- NOTE | 2024-02-07 13:53 | MHC.OFFVIS ---
Intake Visit Reasons: 2w/US(set) Allergies nut - unspecified Allergy (Verified 06/25/23 13:46) Unknown HPI Comments Details: Micha is a pleasant male. He is a patient of . He is seen for the following urologic conditions - nephrolithiasis Telemedicine Evaluation 15 min Consultation Dox[employer]Tag Estephania Video Nephrolithiasis Possible prior episode Imaging - 02/03 renal ultrasound no evidence of stones Encourage fluid intake Follow-up p.r.n. [facility] Social History Household Members: Family Housing: House Do you presently have visiting nurse or other home services: No Patient Tobacco Use Status: Never used Tobacco service: No Review of Systems Const All systems reviewed & are unremarkable except as noted in HPI and below Reports no additional complaints Resp Reports no additional complaints GI Reports no additional complaints Reports as per HPI Musc Reports no additional complaints Physical Exam Telemedicine evaluation Appropriate responses Regular breathing rate and rhythm HEENT Head: Yes normal to inspection Ears: hearing grossly normal bilaterally Eyes General: appearance normal, both eyes and all related structures Neck Neck: Yes normal visual inspection Chest Chest palpation & inspection: normal inspection of the chest Resp Effort & Inspection: normal respiratory effort and able to speak in complete sentences Telehealth Telehealth Telehealth Platform: [employer] Location of provider rendering services: practice address Location of patient: address on file Patient Identification confirmed using: Name, : Yes Telehealth method: video Patient verbally consented to treatment: Yes Patient verbally consented to billing insurance company: Yes Patient informed of any privacy concerns related to visit: Yes Minutes spent on Phone/Video with Pt.: 15 Assessment & Plan Assessment & Plan (1) Nephrolithiasis: Code(s): N20.0 - Calculus of kidney Category: Medical Plan P.r.n. follow-up Patient Instructions: Imaging studies, laboratory and physical exam results were discussed and reviewed in detail. No major barriers to patient understanding were identified. An opportunity to ask questions regarding the treatment plan was provided. All questions were answered. The patient expressed understanding and agreement with the above treatment plan. The patient is aware they should contact our office by phone for worsening of their current condition or the appearance of new urologic symptoms. Compliance is encouraged with any medications and followup testing that is ordered. It is a privilege to participate in the urologic care of your patient. If you have any questions or concerns regarding treatment for the above conditions, or other urologic issues, please do not hesitate to contact me. The office telephone contact is [phone]. This note is constructed using voice recognition software. While every effort has been made to ensure accuracy press writer errors may have been included. Yours sincerely, Dr Peter Bryan MD, [facility] Urology Providers of Expert, Compassionate Care for the Genitourinary System Coding Level of Care Code Tele New Pt Level 3 (92327) Diagnoses Nephrolithiasis N20.0
--- OUTSIDE RECORDS SUMMARY | 2024-02-07 13:56 | XMS_ITS | Continuity of Care Document ---
Author Organization [facility] Address [address] [place] [address]- Care Team Providers Care Plate Colorer Name Role Phone Kylie JUAREZ, Es Flynn Primary Care Physician Encounter [facility] Date(s): 03/18/20 - 04/17/20 [facility]/[address] [address]- Attending Physician: Admtr, Ar8 Allergies, Adverse Reactions, Alerts Substance Reaction Severity Status [place] Oil Active Immunizations Given and Recorded Vaccine Date Status Refusal Reason influenza virus vaccine, inactivated 05/08/18 Give n influenza virus vaccine, inactivated 05/04/17 Give n influenza virus vaccine, inactivated 05/04/16 Give n influenza virus vaccine, inactivated 04/16/15 Give n influenza virus vaccine, inactivated 1 01/02/14 Gi jez influenza virus vaccine, inactivated 2 12/25/12 Gi jez influenza virus vaccine, inactivated 3 04/06/09 Gi jez influenza virus vaccine, inactivated 4 02/25/09 Gi jez influenza virus vaccine, inactivated 5 02/25/09 Gi jez influenza virus vaccine, inactivated 6 02/27/08 Gi jez influenza virus vaccine, inactivated 7 04/26/01 Gi jez influenza virus vaccine, inactivated 8 00 Gi jez influenza virus vaccine, inactivated 9 00 Gi jez influenza virus vaccine, inactivated 10 00 G iven Meningococcal Conjugate Vaccine 05/04/16 Given Meningococcal Conjugate Vaccine 11 10/17/12 Given Human Papillomavirus Vaccine 12 01/02/14 Given Human Papillomavirus Vaccine 13 10/17/12 Given Human Papillomavirus Vaccine 14 08/21/12 Given tetanus/diphtheria/pertussis, acel(Tdap) 15 08/21/12 Given Hepatitis A Pediatric Vaccine 16 02/27/08 Given Hepatitis A Pediatric Vaccine 17 02/28/07 Given Varicella Virus Vaccine 02/28/07 Given Varicella Virus Vaccine 18 04/26/01 Given Measles/Mumps/Rubella Virus Vaccine 19 02/18/04 Gi jez Measles/Mumps/Rubella Virus Vaccine 20 04/26/01 Gi jez diphtheria/tetanus/pertussis, acel(DTaP) 21 02/18/04 Given diphtheria/tetanus/pertussis, acel(DTaP) 22 07/26/01 Given diphtheria/tetanus/pertussis, acel(DTaP) 23 00 Given diphtheria/tetanus/pertussis, acel(DTaP) 24 00 Given diphtheria/tetanus/pertussis, acel(DTaP) 25 00 Given Poliovirus Vaccine, Inactivated 26 02/18/04 Given Poliovirus Vaccine, Inactivated 27 07/26/01 Given Poliovirus Vaccine, Inactivated 28 00 Given Poliovirus Vaccine, Inactivated 29 00 Given pneumococcal 7-valent vaccine 30 04/26/01 Given pneumococcal 7-valent vaccine 31 00 Given pneumococcal 7-valent vaccine 32 00 Given pneumococcal 7-valent vaccine 33 00 Given hepatitis B pediatric vaccine 34 00 Given hepatitis B pediatric vaccine 35 00 Given hepatitis B pediatric vaccine 36 00 Given 1Result Comment: [01/02/2014] order dr recinos 2Result Comment: [12/25/2012] ORDER DR RECINOS 3Admin Note: --VIS 12/12/08 GIVEN 4Admin Note: VIS 10/21/08 given 5Admin Note: --VIS 12/12/08 GIVEN 6Admin Note: VIS 10/04/07 GIVEN 7Admin Note: ADMIN BY BREONNA 8Admin Note: ADMIN BY BREONNA 9Admin Note: ADMIN BY RN 10Admin Note: ADMIN BY BREONNA 11Result Comment: [10/17/2012] ORDER DR RECINOS 12Result Comment: [01/02/2014] order dr recinos 13Result Comment: [10/17/2012] ORDER DR RECINOS 14Result Comment: [08/21/2012] ORDERED BY DR RECINOS 15Result Comment: [08/21/2012] ORDERED BY DR RECINOS 16Admin Note: VIS 05/31/05 GIVEN 17Admin Note: VIS 05/16 18Admin Note: ADMIN BY NURSE 19Admin Note: ADMIN BY RN 20Admin Note: ADMIN BY RN 21Admin Note: ADMIN BY RN 22Admin Note: ADMIN BY RN 23Admin Note: ADMIN BY RN 24Admin Note: ADMIN BY RN 25Admin Note: ADMIN BY RN 26Admin Note: ADMIN BY RN 27Admin Note: ADMIN BY RN 28Admin Note: ADMIN BY RN 29Admin Note: ADMIN BY RN 30Admin Note: ADMIN BY RN 31Admin Note: ADMIN BY RN 32Admin Note: ADMIN BY RN 33Admin Note: ADMIN BY RN 34Admin Note: ADMIN BY RN 35Admin Note: ADMIN BY RN 36Admin Note: ADMIN BY RN Medications Aerochamber See Instructions, # 2 each, Refills 1, Tot. Refills 1, Maintenance, to use with albuterol mdi, 1 for home and 1 for school, 03/24/16 8:39:55, Compound Start Date: 03/24/16 Status: Ordered albuterol CFC free 90 mcg/inh inhalation aerosol 2, puffs, Inhalation, Every 4 hours, PRN, use with spacer,, # 2 each, Refills 2, Tot. Refills 2, Maintenance, 05/08/18 17:57:43 EST, Route to Pharmacy Electronically, [id number], [facility]/pharmacy #[id number] Start Date: 05/08/18 Status: Ordered Cetaphil Daily Advantage topical lotion 1 application, Topically, 2 times a day, PRN for dry skin, # 480 mL, 1 Refills, Maintenance, 05/08/18 18:02:21 EST, Lotion, 1 application Topically 2 times a day,PRN:for dry skin Start Date: 05/08/18 Status: Ordered EpiPen 2-Erick 0.3 mg injectable kit = 0.3 mg, Intramuscular, Once, Home and school. may repeat once., # 2 each, 1 Refills, Soft Stop, 05/04/16 13:44:59, Rx a 2 pack Start Date: 05/04/16 Status: Ordered fluoride 1 mg oral tablet, chewable 1 mg, 1, tablet, By Mouth, Daily at bedtime, # 90 tablet, Refills 4, Tot. Refills 4, Maintenance, 05/04/16 13:55:36, Route to Pharmacy Electronically, [id number], [facility]/pharmacy #[id number] Start Date: 05/04/16 Stop Date: 06/03/16 Status: Ordered loratadine 10 mg oral tablet 10 mg, 1, tablet, By Mouth, Daily, PRN, # 30 tablet, Refills 1, Tot. Refills 1, Maintenance, prn allergies or congestion, 07/24/17 9:48:19 EDT, Route to Pharmacy Electronically, [id number], [facility]/pharmacy #[id number] Start Date: 07/24/17 Status: Ordered multivitamin Multiple Vitamins oral tablet 1 tablet, By Mouth, Daily, # 90 tablet, 4 Refills, Maintenance, 05/04/16 13:56:22, 1 tablet By Mouth Daily Start Date: 05/04/16 Status: Ordered Saline Mist 0.65% nasal spray 2 sprays, Nares, Both, 4 times a day, # 1 each, 0 Refills, Maintenance, 03/18/20 13:35:00 EST, [id number], Partial fill upon patient request if the prescription is for a schedule II opioid drug., 2 sprays Nares, Both 4 times a day, 173, cm, 07... Start Date: 03/18/20 Status: Ordered Problem List Condition Effective Dates Status Health Status Inform ant Asthma(Confirmed) Active Epistaxis(Confirmed) Active Migraine(Confirmed) 06/07/10 Active Mild vitamin D deficiency(Confirmed) Active Nosebleed(Confirmed) 06/07/10 Active Procedures Procedure Date Related Diagnosis Body Site Status Partial Excision of Chronica lly Ingrown Bilateral Great Toenails 09/17/12 Complet ed Social History Social History Type Response Smoking Status Never smoker; Tobacc o user in household: No entered on: 05/31/14 Sex
--- OUTSIDE RECORDS SUMMARY | 2024-02-07 13:57 | XMS_ITS | Continuity of Care Document ---
Author Organization [facility] Address [address] [place] [address]- Care Team Providers Care Production Sorter Name Role Phone Yohannes Dotson MD, I Primary Care Physician Encounter [facility] [place] Date(s): 04/19/22 - 05/19/22 [facility]/[address] [address]- Attending Physician: Omega Urena Allergies, Adverse Reactions, Alerts Substance Reaction Severity Status [place] Oil Active Immunizations Given and Recorded Vaccine [...] VIS 10/04/07 GIVEN 7Admin Note: ADMIN BY RN 8Admin Note: ADMIN BY RN 9Admin Note: ADMIN BY RN 10Admin Note: [...] RN 36Admin Note: ADMIN BY RN Medications acetaminophen 500 mg oral tablet 2 tablet = 1,000 mg, By Mouth, Every 6 hours, # 24 tablet, 0 Refills, Maintenance, 05/22/20 16:18:00 EST, [facility]/pharmacy #[id number], Partial fill upon patient request if the prescription is for a schedule II opioid drug., 173, cm, 09/20/19 11:33:00 EDT, [place]... Start Date: 05/22/20 Status: Ordered Aerochamber See Instructions, # 2 each, Refills 1, Tot. Refills 1, Maintenance, to use with albuterol mdi, 1 for home and 1 for school, 03/24/16 8:39:55, Compound Start Date: 03/24/16 Status: Ordered albuterol 90 mcg/inh inhalation powder 2 puffs, Inhalation, Once, as directed 15 minutes before exercise, # 1 each, 9 Refills, Soft Stop, 06/18/20 15:11:00 EDT, Powder, [facility]/pharmacy #[id number], Partial fill upon patient request if the prescription is for a schedule II opioid drug., 2 puffs Inha... Start Date: 06/18/20 Status: Ordered albuterol CFC free 90 mcg/inh inhalation aerosol 2, puffs, Inhalation, Every 4 hours, PRN, use with spacer,, # 2 each, Refills 2, Tot. Refills 2, Maintenance, 05/08/18 17:57:43 EST, Route to Pharmacy Electronically, [id number], [facility]/pharmacy #[id number] Start Date: 05/08/18 Status: Ordered Cetaphil [...] 2 pack Start Date: 05/04/16 Status: Ordered famotidine 20 mg oral tablet 20 mg, 1, tablet, By Mouth, 2 times a day, # 60 tablet, Refills 0, Tot. Refills 0, Maintenance, 04/19/22 15:32:00 EST, Route to Pharmacy Electronically, [facility]/pharmacy #[id number], Partial fill upon patient request if the prescription is for a schedule II opi... Start Date: 04/19/22 Status: Ordered fluoride 1 mg oral tablet, chewable 1 mg, 1, tablet, By Mouth, Daily at bedtime, # 90 tablet, Refills 4, Tot. Refills 4, Maintenance, 05/04/16 13:55:36, Route to Pharmacy Electronically, [id number], [facility]/pharmacy #[id number] Start Date: 05/04/16 Stop Date: 06/03/16 Status: Ordered ibuprofen 400 mg oral tablet 800 mg, 2, tablet, By Mouth, Every 8 hours, # 24 tablet, Refills 0, Tot. Refills 0, Maintenance, 05/22/20 16:17:00 EST, Route to Pharmacy Electronically, [facility]/pharmacy #[id number], Partial fill upon patientrequest if the prescription is for a schedule II op... Start Date: 05/22/20 Status: Ordered loratadine 10 mg oral tablet 10 mg, 1, tablet, By Mouth, Daily, PRN, # 30 tablet, Refills 1, Tot. Refills 1, Maintenance, prn allergies or congestion, 06/18/20 15:08:00 EDT, Route to Pharmacy Electronically, [facility]/pharmacy #[id number], 173, cm, 06/18/20 14:49:00 EDT, Height, 104, kg, 07/... Start Date: 06/18/20 Status: Ordered multivitamin Multiple Vitamins oral tablet 1 tablet, By Mouth, Daily, # 90 tablet, 4 Refills, Maintenance, 05/04/16 13:56:22, 1 tablet By Mouth Daily Start Date: 05/04/16 Status: Ordered Saline Mist 0.65% nasal spray 2 sprays, Nares, Both, 4 times a day, # 1 each, 0 Refills, Maintenance, 03/18/20 13:35:00 EST, [facility]/pharmacy #[id number], Partial fill upon patient request if the prescription is for a schedule II opioid drug., 2 sprays Nares, Both 4 times a day, 173, cm, 07... Start Date: 03/18/20 Status: Ordered tiZANidine 2 mg oral tablet 2 mg, 1, tablet, By Mouth, 3 times a day, PRN, # 30 tablet, Refills 0, Tot. Refills 0, Maintenance,muscle spasm, 11/04/21 11:06:00 EDT, Route to Pharmacy Electronically, [facility]/pharmacy #[id number], Partial fill upon patient request if the prescription is for... Start Date: 11/04/21 Status: Ordered Problem List Condition Confirmation Course Effective Dates Status Health St atus Informant Asthma Confirmed Active Epistaxis Confirmed Active Migraine Confirmed 06/07/10 Active Mild vitamin D deficiency Confirmed Active Nosebleed Confirmed 06/07/10 Active Obese class I Confirmed Active Procedures Procedure Date Related Diagnosis Body Site Status Partial Excision of Chronica lly Ingrown Bilateral Great Toenails 09/17/12 [facility] ed Social History Social History Type Response Smoking Status Never smoker; Tobacc o user in household: No entered on: 05/31/14 Sex Patient Care team information Care Team Personnel Name: Yohannes Dotson MD, I Position: S Primary Care Physician Member Role: PCP Address: Address: [address] [place] [id number]- Care Team Related Persons Name: JENNA MEIER Address: home [address] [place] [address] Name: DOUG CARRILLO Address: home [address] [place] [address]
--- OUTSIDE RECORDS SUMMARY | 2024-02-07 13:57 | XMS_ITS | Continuity of Care Document ---
Author Organization [facility] Address [address] [place] [address]- Care Team Providers Care Donor Relations Associate Name Role Phone Yohannes Dotson MD, I Primary Care Physician Encounter [facility] Date(s): 12/16/22 - 01/15/23 [facility]/[address] [address]- [place] Allergies, Adverse Reactions, Alerts Substance Reaction Severity Status [place] Oil Active Immunizations Given and Recorded Vaccine [...] RN 36Admin Note: ADMIN BY RN Medications albuterol 90 mcg/inh inhalation powder 2 puffs, Inhalation, Once, as directed 15 minutes before exercise, # 1 each, 9 Refills, Soft Stop, 07/07/22 11:52:00 EDT, Powder, [id number], Partial fill upon patient request if the prescription is for a schedule II opioid drug., 2 puffs Inha... Start Date: 07/07/22 Status: Ordered albuterol CFC free 90 mcg/inh inhalation aerosol 2, puffs, Inhalation, Every 4 hours, PRN, use with spacer,, # 2 each, Refills 2, Tot. Refills 2, Maintenance, 05/08/18 17:57:43 EST, Route to Pharmacy Electronically, [id number], [id number] Start Date: 05/08/18 Status: Ordered famotidine 20 mg oral tablet 20 mg, 1, tablet, By Mouth, 2 times a day, # 180 tablet, Refills 1, Tot. Refills 1, Maintenance, 08/19/22 8:15:00 EDT, Route to Pharmacy Electronically, [id number], Partial fill upon patient request if the prescription is for a schedule II opi... Start Date: 08/19/22 Status: Ordered Problem List Condition Confirmation Course Effective Dates Status Health St atus Informant Asthma Confirmed Active Epistaxis Confirmed Active Migraine Confirmed 06/07/10 Active Mild vitamin D deficiency Confirmed Active Nosebleed Confirmed 06/07/10 Active Obese class II Confirmed Active Social History Social History Type Response Smoking Status Never smoker; Tobacc o user in household: No entered on: 05/31/14 Sex Patient Care team information Care Team Personnel Name: Yohannes Dotson MD, I Position: [facility] Physician - Primary Care Member Role: PCP Address: Address: [address] [place] [address]- Care Team Related Persons Name: JENNA MEIER Address: home [address] [place] [address] Name: DOUG CARRILLO Address: home [address] [place] [address]
--- OUTSIDE RECORDS SUMMARY | 2024-02-07 13:57 | XMS_ITS | Continuity of Care Document ---
Author Organization [facility] Address [address] [place] [address]- Care Team Providers Care Civil Laboratory Technician Name Role Phone Kylie JUAREZ, Es Flynn Primary Care Physician [place] [facility] [place](s): 06/18/20 - 07/18/20 [facility]/[address] [address]- Attending Physician: Admtr, Ar8 Allergies, Adverse Reactions, Alerts Substance Reaction Severity Status [place] Oil Active Immunizations Given and Recorded Vaccine [...] tablet, 0 Refills, Maintenance, 05/22/20 16:18:00 EST, [facility]/pharmacy #[id number], Partial fill upon patient request [...] Refills, Soft Stop, 06/18/20 15:11:00 EDT, Powder, [facility]/pharmacy #[id number], Partial fill upon patient request if the prescription is for a schedule II opioid drug., 2 puffs Inha... Start Date: 06/18/20 Status: Ordered albuterol CFC free 90 mcg/inh inhalation aerosol 2, puffs, Inhalation, Every 4 hours, PRN, use with spacer,, # 2 each, Refills 2, Tot. Refills 2, Maintenance, 05/08/18 17:57:43 EST, Route to Pharmacy Electronically, [id number], [facility]/pharmacy #[id number] Start Date: 05/08/18 Status: Ordered [...] Maintenance, 05/04/16 13:55:36, Route to Pharmacy Electronically, [id number], [facility]/pharmacy #[id number] Start Date: 05/04/16 Stop Date: 06/03/16 Status: Ordered ibuprofen 400 mg oral tablet 800 mg, 2, tablet, By Mouth, Every 8 hours, # 24 tablet, Refills 0, Tot. Refills 0, Maintenance, 05/22/20 16:17:00 EST, Route to Pharmacy Electronically, [facility]/pharmacy #[id number], Partial fill upon patientrequest if the prescription is for a schedule II op... Start Date: 05/22/20 Status: Ordered loratadine 10 mg oral tablet 10 mg, 1, tablet, By Mouth, Daily, PRN, # 30 tablet, Refills 1, Tot. Refills 1, Maintenance, prn allergies or congestion, 06/18/20 15:08:00 EDT, Route to Pharmacy Electronically, [facility]/pharmacy #[id number], 173, cm, 06/18/20 14:49:00 EDT, Height, 104, kg, /... Start Date: 06/18/20 Status: Ordered multivitamin Multiple Vitamins oral tablet 1 tablet, By Mouth, Daily, # 90 tablet, 4 Refills, Maintenance, 05/04/16 13:56:22, 1 tablet By Mouth Daily Start Date: 05/04/16 Status: Ordered Saline Mist 0.65% nasal spray 2 sprays, Nares, Both, 4 times a day, # 1 each, 0 Refills, Maintenance, 03/18/20 13:35:00 EST, [facility]/pharmacy #2011, Partial fill upon patient request if the [...]
--- OUTSIDE RECORDS SUMMARY | 2024-02-07 13:57 | XMS_ITS | Continuity of Care Document ---
Author Organization [facility] Address [address] [place] [address]- Care Team Providers Care Design Eng Name Role Phone Yohannes Dotson MD, I Primary Care Physician Encounter [facility] [place] Date(s): 08/19/22 - 09/18/22 [facility]/[address] [address]- Attending Physician: Omega Urena Allergies, Adverse Reactions, Alerts Substance Reaction Severity Status [place] Oil Active Immunizations Given and Recorded Vaccine [...] 05/08/18 17:57:43 EST, Route to Pharmacy Electronically, [id number], [id number] Start Date: 05/08/18 Status: Ordered [...] 06/07/10 Active Obese class II Confirmed Active Procedures Procedure Date Related Diagnosis Body Site Status Partial Excision of Chronica lly Ingrown Bilateral Great Toenails 09/17/12 Complet ed Social History Social History Type Response Smoking Status Never smoker; Tobacc o user in household: No entered on: 05/31/14 Sex Patient Care team information Care Team Personnel Name: Yohannes Dotson MD, I Position: [facility] Physician - Primary Care Member Role: PCP Address: Address: [address] [place] [address]- Care Team Related Persons Name: JENNA MEIER Address: home [address] [place] [address] Name: DOUG CARRILLO Address: home [address] [place] [address]
--- OUTSIDE RECORDS SUMMARY | 2024-02-07 13:57 | XMS_ITS | Continuity of Care Document ---
Author Organization [facility] Address [address] [place] [address]- Care Team Providers Care Gore Maker Name Role Phone Yohannes Dotson MD, I Primary Care Physician Encounter [facility] [place](s): 07/18/23 - 08/17/23 [facility]/[address] [address]- Attending Physician: Admtr, Omega Allergies, Adverse Reactions, Alerts Substance Reaction Severity Status [place] Oil Active Immunizations Given and Recorded Vaccine [...] # 1 each, 9 Refills, Soft Stop, 07/18/23 16:42:00 EDT, Powder, [id number], Partial fill upon patient request if the prescription is for a schedule II opioid drug., 2 puffs Inha... Start Date: 07/18/23 Status: Ordered albuterol CFC free 90 mcg/inh inhalation aerosol 2, puffs, Inhalation, Every 4 hours, PRN, use with spacer,, # 2 each, Refills 2, Tot. Refills 2, Maintenance, 05/08/18 17:57:43 EST, Route to Pharmacy Electronically, [id number], [id number] Start Date: 05/08/18 Status: Ordered famotidine 20 mg oral tablet 20 mg, 1, tablet, By Mouth, 2 times a day, # 180 tablet, Refills 1, Tot. Refills 1, Maintenance, 08/19/22 8:15:00 EDT, Route to Pharmacy Electronically, [id number], Partial fill upon patient request if the prescription is for a schedule II opi... Start Date: 08/19/22 Status: Ordered loratadine 10 mg oral tablet 10 mg, 1, tablet, By Mouth, Daily, # 30 tablet, Refills 0, Tot. Refills 0, Maintenance, 07/18/23 16:42:00 EDT, Route to Pharmacy Electronically, [id number], Partial fill upon patient request if the prescription is for a schedule II opioid drug... Start Date: 07/18/23 Status: Ordered ProAir HFA 90 mcg/inh inhalation aerosol 2 puffs, Inhalation, 4 times a day, PRN as needed for wheezing, # 8.5 Gm, 2 Refills, Maintenance, 07/18/23 18:29:00 EDT, Aerosol, [id number], Partial fill upon patient request if the prescription is for a schedule II opioid drug., 2 puffs Inha... Start Date: 07/18/23 Status: Ordered Problem List Condition Confirmation Course Effective Dates Status Health St atus Informant Asthma Confirmed Active Epistaxis Confirmed Active Migraine Confirmed 06/07/10 Active Mild vitamin D deficiency Confirmed Active Nosebleed Confirmed 06/07/10 Active Obese class I Confirmed Active Procedures Procedure Date Related Diagnosis Body Site Status Partial Excision of Chronica lly Ingrown Bilateral Great Toenails 09/17/12 [facility] ed Social History Social History Type Response Smoking Status Never smoker; Tobacc o user in household: No entered on: 05/31/14 Sex Hospital Consult note * Event Display: Inpatient Consult Note, Non- Authored Date: * Event Display: Inpatient Consult Note, Non- Authored Date: Patient Care team information Care Team Personnel Name: Yohannes Dotson MD, I Position: S Physician - Primary Care Member Role: PCP Address: Address: [address] [place] [address]- Care Team Related Persons Name: JENNA MEIER Address: home [address] [place] [address] Name: DOUG CARRILLO Address: [address] [place] [address]
--- OUTSIDE RECORDS SUMMARY | 2024-02-07 13:57 | XMS_ITS | Continuity of Care Document ---
Author Organization [facility] Address [address] [place] [address]- Care Team Providers Care Manager Trust Name Role Phone Yohannes Dotson MD, I Primary Care Physician Encounter [facility] [place] Date(s): 01/23/23 - 02/23/23 [facility] [address]- Attending Physician: Yohannes Dotson MD, I Admitting Physician: Yohannes Dotson MD, I Allergies, Adverse Reactions, Alerts Substance Reaction Severity Status [place] Oil Active Immunizations Given and Recorded Vaccine [...] 05/08/18 17:57:43 EST, Route to Pharmacy Electronically, [id number], [id number] Start Date: 05/08/18 Status: Ordered [...] Primary Care Member Role: PCP Address: Address: [address] [place] [address]- Care Team Related Persons Name: JENNA MEIER Address: home [address] [place] [address] Name: DOUG CARRILLO Address: [address] [place] [address]
--- OUTSIDE RECORDS SUMMARY | 2024-02-07 13:57 | XMS_ITS | Continuity of Care Document ---
Author Organization [facility] Address [address] [place] [address]- Care Team Providers Care Waste Removalist Name Role Phone Yohannes Dotson MD, I Primary Care Physician [facility]counter [facility] Date(s): 10/27/21 - 11/26/21 [facility]/[address] [address]- [place] Allergies, Adverse Reactions, Alerts Substance Reaction Severity Status [place] Oil Active Immunizations Given and Recorded Vaccine [...] tablet, 0 Refills, Maintenance, 05/22/20 16:18:00 EST, [id number], Partial fill upon patient [...] Refills, Soft Stop, 06/18/20 15:11:00 EDT, Powder, [id number], Partial fill upon patient request if the prescription is for a schedule II opioid drug., 2 puffs Inha... Start Date: 06/18/20 Status: Ordered albuterol CFC free 90 mcg/inh inhalation aerosol 2, puffs, Inhalation, Every 4 hours, PRN, use with spacer,, # 2 each, Refills 2, Tot. Refills 2, Maintenance, 05/08/18 17:57:43 EST, Route to Pharmacy Electronically, [id number], [id number] Start Date: 05/08/18 Status: Ordered Cetaphil [...] Maintenance, 05/04/16 13:55:36, Route to Pharmacy Electronically, [id number], [facility]acy #[id number] Start Date: 05/04/16 Stop Date: 06/03/16 Status: Ordered ibuprofen 400 mg oral tablet 800 mg, 2, tablet, By Mouth, Every 8 hours, # 24 tablet, Refills 0, Tot. Refills 0, Maintenance, 05/22/20 16:17:00 EST, Route to Pharmacy Electronically, [facility]/pharmacy #[id number], Partial fill upon patientrequest if the prescription is for a schedule II op... Start Date: 05/22/20 Status: Ordered loratadine 10 mg oral tablet 10 mg, 1, tablet, By Mouth, Daily, PRN, # 30 tablet, Refills 1, Tot. Refills 1, Maintenance, prn allergies or congestion, 06/18/20 15:08:00 EDT, Route to Pharmacy Electronically, [id number], 173, cm, 06/18/20 14:49:00 EDT, Height, 104, kg, 07/... Start Date: 06/18/20 Status: Ordered meclizine 25 mg oral tablet 1 tablet = 25 mg, By Mouth, 3 times a day, PRN for dizziness, # 30 tablet, 0 Refills, Acute 01/21/22 11:02:00 EST, 11/04/21 11:02:00 EDT, Tablet, [id number], Partial fill upon patient requestif the prescription is for a schedule II opioid [place]... Start Date: 11/04/21 Stop Date: 01/21/22 Status: Ordered multivitamin Multiple Vitamins oral tablet 1 tablet, By Mouth, Daily, # 90 tablet, 4 Refills, Maintenance, 05/04/16 13:56:22, 1 tablet By Mouth Daily Start Date: 05/04/16 Status: Ordered Saline Mist 0.65% nasal spray 2 sprays, Nares, Both, 4 times a day, # 1 each, 0 Refills, Maintenance, 03/18/20 13:35:00 EST, [id number], Partial fill upon patient request if [...] 11/04/21 11:06:00 EDT, Route to Pharmacy Electronically, [facility][id number], Partial fill upon patient request if the prescription is for... Start Date: 11/04/21 Status: Ordered Problem List Condition Effective Dates Status Health Status Inform ant Asthma(Confirmed) Active Epistaxis(Confirmed) Active Migraine(Confirmed) 06/07/10 Active Mild vitamin D deficiency(Confirmed) Active Nosebleed(Confirmed) 06/07/10 Active Obese class I(Confirmed) Active Social History Social History Type Response Smoking Status Never smoker; Tobacc o user in household: No entered on: 05/31/14 Sex Care Team Personnel Name: Yohannes Dotson MD, I Address: [address] [place] [address]
--- OUTSIDE RECORDS SUMMARY | 2024-02-07 13:57 | XMS_ITS | Continuity of Care Document ---
Author Organization [facility] Address Unknown Care Team Providers Care Shoe Repair Supervisor Name Role Phone Es Espinal MD, V Primary Care Physician Encounter [facility] Date(s): 03/03/21 - 04/02/21 [facility] Allergies, Adverse Reactions, Alerts Substance Reaction Severity Status [place] Oil Active Immunizations Given and Recorded Vaccine [...] 05/08/18 17:57:43 EST, Route to Pharmacy Electronically, [id number], [id number] Start Date: 05/08/18 Status: Ordered [...] Maintenance, 05/04/16 13:55:36, Route to Pharmacy Electronically, [id number], [facility]/pharmacy #[id number] Start Date: 05/04/16 Stop Date: 06/03/16 Status: Ordered ibuprofen 400 mg oral tablet 800 mg, 2, tablet, By Mouth, Every 8 hours, # 24 tablet, Refills 0, Tot. Refills 0, Maintenance, 05/22/20 16:17:00 EST, Route to Pharmacy Electronically, [facility]/pharmacy #[id number], Partial fill upon patientrequest if the prescription is for a schedule II op... Start Date: 05/22/20 Status: Ordered loratadine 10 mg oral tablet 10 mg, 1, tablet, By Mouth, Daily, PRN, # 30 tablet, Refills 1, Tot. Refills 1, Maintenance, prn allergies or congestion, 06/18/20 15:08:00 EDT, Route to Pharmacy Electronically, [facility]/pharmacy #[id number], 173, cm, 06/18/20 14:49:00 EDT, Height, [...] each, 0 Refills, Maintenance, 03/18/20 13:35:00 EST, [facility]/pharmacy #[id number], Partial fill upon patient request if the prescription is for a schedule II opioid drug., 2 sprays Nares, Both 4 times a day, 173, cm, 07... Start Date: 03/18/20 Status: Ordered Problem List Condition Effective Dates Status Health Status Inform ant Asthma(Confirmed) Active Epistaxis(Confirmed) Active Migraine(Confirmed) 06/07/10 Active Mild vitamin D deficiency(Confirmed) Active Nosebleed(Confirmed) 06/07/10 Active Social History Social History Type Response Smoking Status Never smoker; Tobacc o user in household: No entered on: 05/31/14 Sex
--- OUTSIDE RECORDS SUMMARY | 2024-02-07 13:57 | XMS_ITS | Continuity of Care Document ---
Author Organization [facility] Address [address] [place] [address]- Care Team Providers Care Recreation Therapy Teacher Name Role Phone Es Espinal MD, V Primary Care Physician Encounter [facility] Date(s): 09/12/19 - 10/12/19 [facility]/[address] [address]- [facility] Allergies, Adverse Reactions, Alerts Substance Reaction Severity Status [place] Oil Active Immunizations Given and Recorded Vaccine [...] 05/08/18 17:57:43 EST, Route to Pharmacy Electronically, [id number], [facility]/pharmacy #[id number] Start Date: 05/08/18 Status: Ordered [...] Maintenance, 05/04/16 13:55:36, Route to Pharmacy Electronically, [id number], [facility]/pharmacy #1291 Start Date: 05/04/16 Stop Date: 06/03/16 Status: Ordered loratadine 10 mg oral tablet 10 mg, 1, tablet, By Mouth, Daily, PRN, # 30 tablet, Refills 1, Tot. Refills 1, Maintenance, prn allergies or congestion, 07/24/17 9:48:19 EDT, Route to Pharmacy Electronically, [id number], [facility]/pharmacy #1291 Start Date: 07/24/17 Status: Ordered multivitamin Multiple Vitamins oral tablet 1 tablet, By Mouth, Daily, # 90 tablet, 4 Refills, Maintenance, 05/04/16 13:56:22, 1 tablet By Mouth Daily Start Date: 05/04/16 Status: Ordered Problem List Condition Effective Dates Status Health Status Inform ant Asthma(Confirmed) Active Epistaxis(Confirmed) Active Migraine(Confirmed) 06/07/10 Active Mild vitamin D deficiency(Confirmed) Active Nosebleed(Confirmed) 06/07/10 Active Social History Social History Type Response Smoking Status Never smoker; Tobacc o user in household: No entered on: 05/31/14 Sex
--- OUTSIDE RECORDS SUMMARY | 2024-02-07 13:57 | XMS_ITS | Continuity of Care Document ---
Author Organization [facility] Address [address] [place] [address]- Care Team Providers Care Smoking Pipe Liner Name Role Phone Yohannes Dotson MD, I Primary Care Physician [place] [facility] Date(s): 07/06/22 - 08/05/22 [facility]/[address] [address]- [place] Allergies, Adverse Reactions, Alerts Substance Reaction Severity Status [place] Oil Active Immunizations Given and Recorded Vaccine [...] tablet, 0 Refills, Maintenance, 05/22/20 16:18:00 EST, [facility]/pharmacy #[id number], Partial fill upon patient request if [...] 05/08/18 17:57:43 EST, Route to Pharmacy Electronically, [id number], [id number] Start Date: 05/08/18 Status: Ordered [...] 04/19/22 15:32:00 EST, Route to Pharmacy Electronically, [facility]/pharmacy #[id number], Partial fill upon patient request if the prescription is for a schedule II opi... Start Date: 04/19/22 Status: Ordered fluoride 1 mg oral tablet, chewable 1 mg, 1, tablet, By Mouth, Daily at bedtime, # 90 tablet, Refills 4, Tot. Refills 4, Maintenance, 05/04/16 13:55:36, Route to Pharmacy Electronically, [id number], [facility]/pharmacy #[id number] Start Date: 05/04/16 Stop Date: 06/03/16 Status: Ordered ibuprofen 400 mg oral tablet 800 mg, 2, tablet, By Mouth, Every 8 hours, # 24 tablet, Refills 0, Tot. Refills 0, Maintenance, 05/22/20 16:17:00 EST, Route to Pharmacy Electronically, [facility]/pharmacy #[id number], Partial fill upon patientrequest if the prescription is for a schedule II op... Start Date: 05/22/20 Status: Ordered loratadine 10 mg oral tablet 10 mg, 1, tablet, By Mouth, Daily, PRN, # 30 tablet, Refills 1, Tot. Refills 1, Maintenance, prn allergies or congestion, 06/18/20 15:08:00 EDT, Route to Pharmacy Electronically, [facility]/pharmacy #[id number], 173, cm, 06/18/20 14:49:00 EDT, Height, 104, kg, ... Start Date: 06/18/20 Status: Ordered multivitamin Multiple Vitamins oral tablet 1 tablet, By Mouth, Daily, # 90 tablet, 4 Refills, Maintenance, 05/04/16 13:56:22, 1 tablet By Mouth Daily Start Date: 05/04/16 Status: Ordered Saline Mist 0.65% nasal spray 2 sprays, Nares, Both, 4 times a day, # 1 each, 0 Refills, Maintenance, 03/18/20 13:35:00 EST, [facility]/pharmacy #[id number], Partial fill upon patient request if [...] 11/04/21 11:06:00 EDT, Route to Pharmacy Electronically, [facility]/pharmacy #[id number], Partial fill upon patient request if the prescription is for... Start Date: 11/04/21 Status: Ordered Problem List Condition Confirmation Course Effective Dates Status Health St at[facility] Informant Asthma Confirmed Active Epistaxis Confirmed Active Migraine Confirmed 06/07/10 Active Mild vitamin D deficiency Confirmed Active Nosebleed Confirmed 06/07/10 Active Obese class I Confirmed Active Social History Social History Type Response Smoking Status Never smoker; Tobacc o user in household: No entered on: 05/31/14 Sex Patient Care team information Care Team Personnel Name: Yohannes Dotson MD, I Position: [facility] Physician - Primary Care Member Role: PCP Address: Address: [address] [place] [address]- Care Team Related Persons Name: JENNA MEIER Address: home [address] [place] [address] Name: DOUG CARRILLO Address: home [address] [place] [address]
--- OUTSIDE RECORDS SUMMARY | 2024-02-07 13:58 | XMS_ITS | Continuity of Care Document ---
Author Organization [facility] Address [address] [place] [address]- Care Team Providers Care Shuffle Board Operator Name Role Phone Kylie JUAREZ, Es Flynn Primary Care Physician [facility]counter [facility] Date(s): 05/01/19 - 05/11/19 [facility]/[address] [address]- [facility] Attending Physician: Admtr, Ar8 Allergies, Adverse Reactions, Alerts Substance Reaction Severity Status [place] Oil Active Immunizations Given and Recorded Vaccine [...] ADMIN BY BREONNA 9Admin Note: ADMIN BY BREONNA 10Admin Note: ADMIN BY BREONNA 11Result Comment: [...] 05/08/18 17:57:43 EST, Route to Pharmacy Electronically, [id number], [facility]/pharmacy #[id number] Start Date: 05/08/18 Status: [...] Maintenance, 05/04/16 13:55:36, Route to Pharmacy Electronically, [id number], [facility]/pharmacy #[id number] Start Date: 05/04/16 Stop Date: 06/03/16 Status: Ordered loratadine 10 mg oral tablet 10 mg, 1, tablet, By Mouth, Daily, PRN, # 30 tablet, Refills 1, Tot. Refills 1, Maintenance, prn allergies or congestion, 07/24/17 9:48:19 EDT, Route to Pharmacy Electronically, [id number], [facility]/pharmacy #1291 Start Date: 07/24/17 Status: [...]
--- OUTSIDE RECORDS SUMMARY | 2024-02-07 13:58 | XMS_ITS | Continuity of Care Document ---
Author Organization [facility] Address [address] [place] [address]- Care Team Providers Care Woodenware Assembler Name Role Phone Kylie JUAREZ, Es Flynn Primary Care Physician Encounter [facility] [id number] Date(s): 03/03/21 - 03/10/21 [facility] [address] [place] [address]- Encounter Diagnosis Upper respiratory infection(Discharge Diagnosis) - 03/03/21 Sore throat(Discharge Diagnosis) - 03/03/21 Attending Physician: Oziel Carbajal MD Referring Physician: Es Espinal MD, V Allergies, Adverse Reactions, Alerts Substance Reaction Severity Status [place] Oil Active Immunizations Given and Recorded Vaccine [...] 13 10/17/12 Given Human Papillomavirus Vaccine 14 6/11/13 Given tetanus/diphtheria/pertussis, acel(Tdap) 15 08/21/12 Given Hepatitis [...] 05/08/18 17:57:43 EST, Route to Pharmacy Electronically, [id number], [facility]/pharmacy #[id number] Start Date: 05/08/18 Status: Ordered amoxicillin 875 mg oral tablet 1 tablet = 875 mg, By Mouth, 2 times a day, for 10 days, # 20 tablet, 0 Refills, Acute 03/13/21 13:36:00 EST, 03/03/21 13:36:00 EST, Tablet, [facility]/pharmacy #[id number], Partial fill upon patient request if the prescription is for a schedule II opioid drug., 1... Start Date: 03/03/21 Stop Date: 03/13/21 Status: Ordered Cetaphil Daily Advantage topical lotion [...] Maintenance, 05/04/16 13:55:36, Route to Pharmacy Electronically, [id number], [facility]/pharmacy #1291 Start Date: 05/04/16 Stop Date: 06/03/16 Status: Ordered ibuprofen 400 mg oral tablet 800 mg, 2, tablet, By Mouth, Every 8 hours, # 24 tablet, Refills 0, Tot. Refills 0, Maintenance, 05/22/20 16:17:00 EST, Route to Pharmacy Electronically, [facility]/pharmacy #[id number], Partial fill upon patientrequest if the prescription is for a schedule II op... Start Date: 05/22/20 Status: Ordered loratadine 10 mg oral tablet 10 mg, 1, tablet, By Mouth, Daily, PRN, # 30 tablet, Refills 1, Tot. Refills 1, Maintenance, prn allergies or congestion, 06/18/20 15:08:00 EDT, Route to Pharmacy Electronically, [facility]/pharmacy #[id number], 173, cm, 06/18/20 14:49:00 EDT, [...] each, 0 Refills, Maintenance, 03/18/20 13:35:00 EST, [facility]/pharmacy #[id number], Partial fill upon patient request if the prescription is for a schedule II opioid drug., 2 sprays Nares, Both 4 times a day, 173, cm, 07... Start Date: 03/18/20 Status: Ordered Problem List Condition Effective Dates Status Health Status Inform ant Asthma(Confirmed) Active Epistaxis(Confirmed) Active Migraine(Confirmed) 06/07/10 Active Mild vitamin D deficiency(Confirmed) Active Nosebleed(Confirmed) 06/07/10 Active Diagnosis Diagnosis Type Effective Dates Health Status Clinical Service Informant Upper respiratory infection Discharge Diagnosis 03/03/21 Sore throat Discharge Diagnosis 03/03/21 Social History Social History Type Response Smoking Status Never smoker; Tobacc o user in household: No entered on: 05/31/14 Sex
--- OUTSIDE RECORDS SUMMARY | 2024-02-07 13:58 | XMS_ITS | Continuity of Care Document ---
Author Organization [facility] Address [address] [place] [address]- Care Team Providers Care Room Service Waiter/Waitress Name Role Phone Yohannes Dotson MD, I Primary Care Physician [facility]counter [facility] Date(s): 12/14/22 - 01/13/23 [facility]/[address] [address]- [place] Allergies, Adverse Reactions, Alerts Substance Reaction Severity Status [place] Oil Active Immunizations Given and Recorded Vaccine [...] 05/08/18 17:57:43 EST, Route to Pharmacy Electronically, [id number], [id number] Start Date: 05/08/18 Status: Ordered [...] Personnel Name: Yohannes Dotson MD, I Position: [facility] Physician - Primary Care Member Role: PCP Address: Address: [address] [place] [address]- Care Team Related Persons Name: JENNA MEIER Address: home [address] [place] [address] Name: DOUG CARRILLO Address: [address] [place] [address]
--- OUTSIDE RECORDS SUMMARY | 2024-02-07 13:58 | XMS_ITS | Continuity of Care Document ---
Author Organization [facility] Address [address] [place] [address]- Care Team Providers Care Home Energy Auditor Name Role Phone Kylie JUAREZ, Es Flynn Primary Care Physician [facility]counter [facility] Date(s): 06/17/20 - 07/17/20 [facility]/[address] [address] Allergies, Adverse Reactions, Alerts Substance Reaction Severity Status [place] Oil Active Immunizations Given and Recorded Vaccine [...] Vaccine 17 02/28/07 Given Varicella Virus Vaccine 12/19/07 Given Varicella Virus Vaccine 18 04/26/01 Given [...] tablet, 0 Refills, Maintenance, 05/22/20 16:18:00 EST, [facility]/pharmacy #[id number], Partial fill upon patient request [...] Refills, Soft Stop, 06/18/20 15:11:00 EDT, Powder, [facility]/pharmacy #[id number], Partial fill upon patient request if the prescription is for a schedule II opioid drug., 2 puffs Inha... Start Date: 06/18/20 Status: Ordered albuterol CFC free 90 mcg/inh inhalation aerosol 2, puffs, Inhalation, Every 4 hours, PRN, use with spacer,, # 2 each, Refills 2, Tot. Refills 2, Maintenance, 05/08/18 17:57:43 EST, Route to Pharmacy Electronically, [id number], [facility]/pharmacy #1291 Start Date: 05/08/18 Status: Ordered [...] Maintenance, 05/04/16 13:55:36, Route to Pharmacy Electronically, [id number], [facility]/pharmacy #1291 Start Date: 05/04/16 Stop Date: 06/03/16 Status: Ordered ibuprofen 400 mg oral tablet 800 mg, 2, tablet, By Mouth, Every 8 hours, # 24 tablet, Refills 0, Tot. Refills 0, Maintenance, 05/22/20 16:17:00 EST, Route to Pharmacy Electronically, [facility]/pharmacy #[id number], Partial fill upon patientrequest if [...] each, 0 Refills, Maintenance, 03/18/20 13:35:00 EST, [facility]/pharmacy #[id number], Partial fill upon patient request if the [...]
--- OUTSIDE RECORDS SUMMARY | 2024-02-07 13:58 | XMS_ITS | Continuity of Care Document ---
Author Organization [facility] Address [address] [place] [address]- Care Team Providers Care Motion Graphics Designer Name Role Phone Yohannes Dotson MD, I Primary Care Physician [place] [facility] [place] 11/04/21 - 12/04/21 [facility]/[address] [address]- Attending Physician: Omega Urena Allergies, Adverse Reactions, Alerts Substance Reaction Severity Status [place] Oil Active Immunizations Given and Recorded Vaccine [...] 0 Refills, Maintenance, 05/22/20 16:18:00 EST, [facility]/pharmacy #[id number], Partial fill upon patient request [...] Soft Stop, 06/18/20 15:11:00 EDT, Powder, [facility]/pharmacy #[id number], Partial fill upon patient request if the prescription is for a schedule II opioid drug., 2 puffs Inha... Start Date: 06/18/20 Status: Ordered albuterol CFC free 90 mcg/inh inhalation aerosol 2, puffs, Inhalation, Every 4 hours, PRN, use with spacer,, # 2 each, Refills 2, Tot. Refills 2, Maintenance, 05/08/18 17:57:43 EST, Route to Pharmacy Electronically, [id number], [facility]/pharmacy #[id number] Start Date: 05/08/18 Status: Ordered [...] Maintenance, 05/04/16 13:55:36, Route to Pharmacy Electronically, [id number], [facility]/pharmacy #[id number] Start Date: 05/04/16 Stop Date: 06/03/16 Status: Ordered ibuprofen 400 mg oral tablet 800 mg, 2, tablet, By Mouth, Every 8 hours, # 24 tablet, Refills 0, Tot. Refills 0, Maintenance, 05/22/20 16:17:00 EST, Route to Pharmacy Electronically, [facility]/pharmacy #[id number], Partial fill upon patientrequest if [...] 01/21/22 11:02:00 EST, 11/04/21 11:02:00 EDT, Tablet, [id number], Partial fill upon patient requestif the [...] 11:06:00 EDT, Route to Pharmacy Electronically, [facility]/pharmacy #1291, Partial fill upon patient request if the prescription is for... Start Date: 11/04/21 Status: Ordered Problem List Condition Effective Dates Status Health Status Inform ant Asthma(Confirmed) Active Epistaxis(Confirmed) Active Migraine(Confirmed) 06/07/10 Active Mild vitamin D deficiency(Confirmed) Active Nosebleed(Confirmed) 06/07/10 Active Obese class I(Confirmed) Active Procedures Procedure Date Related Diagnosis Body Site Status Partial Excision of Chronica lly Ingrown Bilateral Great Toenails 09/17/12 Complet ed Social History Social History Type Response Smoking Status Never smoker; Tobacc o user in household: No entered on: 05/31/14 Sex Care Team Personnel Name: Yohannes Dotson MD, I Address: [address] [place] [address]
--- OUTSIDE RECORDS SUMMARY | 2024-02-07 13:58 | XMS_ITS | Continuity of Care Document ---
Author Organization [facility] Address [address] [place] [address]- Care Team Providers Care Supervisor Tubing Name Role Phone Yohannes Dotson MD, I Primary Care Physician [facility]counter [facility] Date(s): 11/01/21 - 12/01/21 [facility]/[address] [address]- [place] Allergies, Adverse Reactions, Alerts Substance Reaction Severity Status [place] Oil Active Immunizations Given and Recorded Vaccine [...] 05/08/18 17:57:43 EST, Route to Pharmacy Electronically, [id number], [id number] Start Date: 05/08/18 Status: Ordered [...] Maintenance, 05/04/16 13:55:36, Route to Pharmacy Electronically, [id number], [facility]/pharmacy #[id number] Start Date: 05/04/16 Stop [...] 01/21/22 11:02:00 EST, 11/04/21 11:02:00 EDT, Tablet, [facility]/pharmacy #[id number], Partial fill upon patient requestif the [...] Refills, Maintenance, 03/18/20 13:35:00 EST, [facility]/pharmacy #[id number], Partial fill upon [...] 11/04/21 11:06:00 EDT, Route to Pharmacy Electronically, [facility]/pharmacy #[id number], Partial fill upon patient [...] Personnel Name: Yohannes Dotson MD, I Address: [address] [place] [address]
--- OUTSIDE RECORDS SUMMARY | 2024-02-07 13:58 | XMS_ITS | Continuity of Care Document ---
Author Organization [facility] Address [address] [place] [address]- Care Team Providers Care Bee Keeper Name Role Phone Es Espinal MD, V Primary Care Physician [place] [facility] [place]s): 12/03/19 - 01/02/20 [facility]/[address] [address]- [facility] Attending Physician: Admtr, Ar8 Allergies, Adverse Reactions, Alerts Substance Reaction Severity Status [place] Oil Active Immunizations Given and Recorded Vaccine [...] 05/08/18 17:57:43 EST, Route to Pharmacy Electronically, [id number], [facility]/pharmacy #[id number] Start Date: 05/08/18 Status: [...] Maintenance, 05/04/16 13:55:36, Route to Pharmacy Electronically, [id number], [facility]/pharmacy #1291 Start Date: 05/04/16 Stop Date: 06/03/16 Status: Ordered loratadine 10 mg oral tablet 10 mg, 1, tablet, By Mouth, Daily, PRN, # 30 tablet, Refills 1, Tot. Refills 1, Maintenance, prn allergies or congestion, 07/24/17 9:48:19 EDT, Route to Pharmacy Electronically, [id number], [facility]/pharmacy #1291 Start Date: 07/24/17 Status: [...]
--- OUTSIDE RECORDS SUMMARY | 2024-02-07 13:58 | XMS_ITS | Continuity of Care Document ---
Author Organization [facility] Address [address] [place] [address]- Care Team Providers Care Sheet Hanger Name Role Phone Es Espinal MD, V Primary Care Physician Encounter [facility] [place] Date(s): 06/17/20 - 07/18/20 [facility]/[address] [address]- Attending Physician: Es Espinal MD, V Admitting Physician: Es Espinal MD, V Referring Physician: Es Espinal MD, V Allergies, Adverse Reactions, Alerts Substance Reaction Severity Status Standard Oil Active Immunizations Given and Recorded Vaccine [...] 05/08/18 17:57:43 EST, Route to Pharmacy Electronically, [id number], [facility]/pharmacy #[id number] Start Date: 05/08/18 [...] Maintenance, 05/04/16 13:55:36, Route to Pharmacy Electronically, [id number], [facility]/pharmacy #[id number] Start Date: 05/04/16 Stop Date: 06/03/16 Status: Ordered ibuprofen 400 mg oral tablet 800 mg, 2, tablet, By Mouth, Every 8 hours, # 24 tablet, Refills 0, Tot. Refills 0, Maintenance, 05/22/20 16:17:00 EST, Route to Pharmacy Electronically, [facility]/pharmacy #[id number], Partial fill upon patientrequest if the prescription is for a schedule II op... Start Date: 05/22/20 Status: Ordered loratadine 10 mg oral tablet 10 mg, 1, tablet, By Mouth, Daily, PRN, # 30 tablet, Refills 1, Tot. Refills 1, Maintenance, prn allergies or congestion, 06/18/20 15:08:00 EDT, Route to Pharmacy Electronically, [facility]/pharmacy #[id number], 173, cm, 06/18/20 [...] each, 0 Refills, Maintenance, 03/18/20 13:35:00 EST, [facility]/pharmacy #[id number], Partial fill upon [...]
--- OUTSIDE RECORDS SUMMARY | 2024-02-07 13:58 | XMS_ITS | Continuity of Care Document ---
Author Organization [facility] Address [address] [place] [address]- Care Team Providers Care Partnership Marketing Manager Name Role Phone Kylie JUAREZ, Es Flynn Primary Care Physician Encounter [facility] [place] Date(s): 03/03/21 - 04/02/21 [facility] [address] [place] [address]- Attending Physician: Omega Urena Admitting Physician: AdmtrOmega Referring Physician: Admtr, Ar8 Allergies, Adverse Reactions, Alerts Substance Reaction Severity Status [place] Oil Active Immunizations Given and Recorded Vaccine [...] influenza virus vaccine, inactivated 5 02/25/09 Gi ejz influenza virus vaccine, inactivated 6 02/27/08 Gi [...] tablet, 0 Refills, Maintenance, 05/22/20 16:18:00 EST, [facility]/pharmacy #[id number], Partial fill upon patient request [...] Refills, Soft Stop, 06/18/20 15:11:00 EDT, Powder, [facility]/pharmacy #[id number], Partial fill upon patient request if the prescription is for a schedule II opioid drug., 2 puffs Inha... Start Date: 06/18/20 Status: Ordered albuterol CFC free 90 mcg/inh inhalation aerosol 2, puffs, Inhalation, Every 4 hours, PRN, use with spacer,, # 2 each, Refills 2, Tot. Refills 2, Maintenance, 05/08/18 17:57:43 EST, Route to Pharmacy Electronically, [id number], [facility]/pharmacy #[id number] Start Date: 05/08/18 Status: Ordered [...] Maintenance, 05/04/16 13:55:36, Route to Pharmacy Electronically, [id number], [facility]/pharmacy #[id number] Start Date: 05/04/16 Stop Date: 06/03/16 Status: Ordered ibuprofen 400 mg oral tablet 800 mg, 2, tablet, By Mouth, Every 8 hours, # 24 tablet, Refills 0, Tot. Refills 0, Maintenance, 05/22/20 16:17:00 EST, [id number] fill upon patientrequest if the prescription is for a schedule II op... Start Date: 05/22/20 Status: Ordered loratadine 10 mg oral tablet 10 mg, 1, tablet, By Mouth, Daily, PRN, # 30 tablet, Refills 1, Tot. Refills 1, Maintenance, prn allergies or congestion, 06/18/20 15:08:00 EDT, Route to Pharmacy Electronically, [facility]/pharmacy #[id number], 173, cm, 06/18/20 14:49:00 EDT, [...] each, 0 Refills, Maintenance, 03/18/20 13:35:00 EST, [facility]/pharmacy #[id number], Partial fill upon patient request if the [...]
--- OUTSIDE RECORDS SUMMARY | 2024-02-07 13:58 | XMS_ITS | Continuity of Care Document ---
Author Organization [facility] Address [address] [place] [address]- Care Team Providers Care Manufacturing Mechanic Name Role Phone Yohannes Dotson MD, I Primary Care Physician Encounter [facility] Date(s): 01/23/23 - 02/22/23 [facility] [address]- [place] Allergies, Adverse Reactions, Alerts Substance Reaction Severity Status [place] Oil Active Immunizations Given and Recorded Vaccine [...] 05/08/18 17:57:43 EST, Route to Pharmacy Electronically, [id number], [facility]/pharmacy #[id number] Start Date: 05/08/18 Status: Ordered [...] Primary Care Member Role: PCP Address: Address: [address] [place] [address]- Care Team Related Persons Name: JENNA MEIER Address: home [address] [place] [address] Name: DOUG CARRILLO Address: [address] [place] [address]
--- OUTSIDE RECORDS SUMMARY | 2024-02-07 13:58 | XMS_ITS | Continuity of Care Document ---
Author Organization [facility] Address [address] [place] [address]- Care Team Providers Care Corporate Event Planner Name Role Phone Yohannes Dotson MD, I Primary Care Physician Encounter [facility] Date(s): 04/28/23 - 05/28/23 [facility] [place] [facility] [address]- [place] Allergies, Adverse Reactions, Alerts Substance Reaction Severity Status [place] Oil Active Immunizations Given and Recorded Vaccine [...] 05/08/18 17:57:43 EST, Route to Pharmacy Electronically, [id number], [id number] Start Date: 05/08/18 Status: Ordered [...] Primary Care Member Role: PCP Address: Address: [address] [place] [address]- Care Team Related Persons Name: JENNA MEIER Address: home [address] [place] [address] Name: DOUG CARRILLO Address: home [address] [place] [address]
--- OUTSIDE RECORDS SUMMARY | 2024-02-07 13:58 | XMS_ITS | Continuity of Care Document ---
Author Organization [facility] Address [address] [place] [address]- Care Team Providers Care Installation Service Representative Name Role Phone Es Espinal MD, V Primary Care Physician Encounter [facility] [place] [place] Date(s): 09/20/19 - 10/20/19 [facility]/[address] [address]- [facility] Attending Physician: Admtr, Ar8 Allergies, Adverse Reactions, Alerts Substance Reaction Severity Status Cougar Oil Active Immunizations Given and Recorded Vaccine [...] BY BREONNA 11Result Comment: [10/17/2012] ORDER DR RECIONS 12Result Comment: [01/02/2014] order dr recinos 13Result Comment: [10/17/2012] ORDER DR RECINOS 14Result Comment: [08/21/2012] ORDERED BY DR REICNOS 15Result Comment: [08/21/2012] ORDERED BY DR RECINOS [...] 05/08/18 17:57:43 EST, Route to Pharmacy Electronically, [id number], [facility]/pharmacy #[id number] Start Date: 05/08/18 [...] Maintenance, 05/04/16 13:55:36, Route to Pharmacy Electronically, [id number], [facility]/pharmacy #[id number] Start Date: 05/04/16 Stop Date: 06/03/16 Status: Ordered loratadine 10 mg oral tablet 10 mg, 1, tablet, By Mouth, Daily, PRN, # 30 tablet, Refills 1, Tot. Refills 1, Maintenance, prn allergies or congestion, 07/24/17 9:48:19 EDT, Route to Pharmacy Electronically, [id number], [facility]/pharmacy #[id number] Start Date: 07/24/17 [...]
--- OUTSIDE RECORDS SUMMARY | 2024-02-07 13:58 | XMS_ITS | Continuity of Care Document ---
Author Organization [facility] Address [address] [place] [address]- Care Team Providers Care Crown Ceramist Name Role Phone Yohannes Dotson MD, I Primary Care Physician Encounter [facility] Date(s): 01/25/23 - 02/24/23 [facility] [address]- [place] Allergies, Adverse Reactions, Alerts Substance Reaction Severity Status [place] Oil Active Immunizations Given and Recorded Vaccine [...] 05/08/18 17:57:43 EST, Route to Pharmacy Electronically, [id number], [id number] Start Date: 05/08/18 Status: Ordered [...] Primary Care Member Role: PCP Address: Address: [address] [place] [address]- Care Team Related Persons Name: JENNA MEIER Address: home [address] [place] [address] Name: DOUG CARRILLO Address: [address] [place] [address]
--- OUTSIDE RECORDS SUMMARY | 2024-02-07 13:58 | XMS_ITS | Continuity of Care Document ---
Author Organization [facility] Address [address] [place] [address]- Care Team Providers Care In Service Coordinator Name Role Phone Yohannes Dotson MD, I Primary Care Physician Encounter [facility] AC[facility] R [id number] Date(s): 02/09/23 - 03/11/23 [facility]/[place] [address]- Attending Physician: AdmOmega negro Allergies, Adverse Reactions, Alerts Substance Reaction Severity Status [place] Oil Active Immunizations Given and Recorded Vaccine [...] 05/08/18 17:57:43 EST, Route to Pharmacy Electronically, [id number], [id number] Start Date: 05/08/18 Status: Ordered [...] Chronica lly Ingrown Bilateral Great Toenails 09/17/12 [facility] ed Social History Social History Type Response Smoking Status Never smoker; Tobacc o user in household: No entered on: 05/31/14 Sex Patient Care team information Care Team Personnel Name: Yohannes Dotson MD, I Position: [facility] Physician - Primary Care Member Role: PCP Address: Address: [address] [place] [address]- Care Team Related Persons Name: JENNA MEIER Address: home [address] [place] [address] Name: DOUG CARRILLO Address: [address] [place] [address]
== END 2024-02-07 16:17 | disposition home or self-care (01) ==
LOC: HO.HUSH 13:54
PROVIDERS: PCP Internal Medicine; Visit Provider Urology
DX: N20.0 Calculus of kidney (principal)
CPT/HCPCS: 99203

== ENCOUNTER → 2024-02-07 13:54 | Outpatient (BNVA) | payer OTHER, SELFPAY | PROVIDERS: PCP Internal Medicine; Visit Provider Urology | DX: N20.0 Calculus of kidney (principal) ==

== ENCOUNTER 2024-10-21 20:25 | Emergency (ER) | payer OTHER, SELFPAY ==
--- NOTE | ~2024-10-21 | US_ITS ---
CLINICAL HISTORY: bilateral pain and swelling US Scrotum with Doppler Comparison: None provided Findings: Right testicle normal echotexture, 4.2 x 1.9 x 3.0 cm. Left testicle normal echotexture, 4.3 x 2.0 x 2.6 cm. Normal color flow and arterial/venous spectral tracing of both testicles. Few small scattered calcifications in the testicles. Hyperemic epididymides. No hydroceles or varicoceles. IMPRESSION: Hyperemic epididymides concerning for epididymitis. No evidence of torsion. This document has been electronically signed by: Fidencio Pelaez MD on 10/21/2024 21:56:54
--- NOTE | 2024-10-21 20:26 | ED_ITS ---
HPI - General Adult General Chief complaint: Urogenital-Male Stated complaint: possible twisted testicle Time Seen by Provider: 10/22/24 00:45 History of Present Illness ED Provider: Jesus Chaves MD HPI narrative: 24-year-old otherwise healthy male with chronic intermittent scrotal pain without trauma. Bilateral painful tender no swelling. Says this happens every couple of months. No injuries no radiation of the pain no pyuria. Not sexually active for years he tells me. Denies dysuria pyuria skin changes ulcers Related Data Previous Rx's ?Medication ?Instructions ?Recorded cefuroxime axetil 500 mg tablet 500 mg PO BID 14 days #28 tabs 06/30/23 azithromycin 1 gram oral packet 1 g PO QWEEK #1 ea 03/06 doxycycline hyclate 100 mg capsule 100 mg PO BID 10 da ys #20 caps 10/22/24 Allergies Allergy/AdvReac Type Severity Reaction Status Date / Time nut - unspecified Allergy Unknown Verified 10/21/24 20:29 [facility] Social History Social History Household Members: Family Housing: House Do you presently have visiting nurse or other home services: No Alcohol intake: never Patient Tobacco Use Status: Never used Tobacco Smoked in Last 30 Days: No Use of substances other than those prescribed or required for medical reasons: No Any prior treatment program specific to substance use: No Advance Directives: No Advance Directives Information Provided: Yes service: No Physical Exam ED Exam Exam: GENERAL: Well appearing. No apparent distress. Alert. HEAD/NECK: No visual trauma. EYES: Normal to inspection. No conjunctival erythema. No discharge. ENMT: Hearing grossly normal. External nose normal. RESPIRATORY: Respiratory effort normal. CARDIOVASCULAR: Additional details (Grossly well perfused). SKIN: No jaundice. NEUROLOGICAL: Alert. Moving all extremities x4. Additional details (No gross motor deficits. Normal tone. ). PSYCHIATRIC: Alert. Appearance appropriate for situation. : Chaperoned by patient's covering nurse. Normal penile shaft no ulcers. Scrotum grossly unremarkable externally with no skin changes or obvious swelling or abnormal lie. Bilateral epididymal tenderness nontender testicles. Vital Signs: Vital Signs - 24 hr 10/21/24 20:27 10/22/24 01:10 10/22/24 01:53 Temperature 98.3 F 97.4 F 97.4 F Pulse Rate 76 72 72 Respiratory Rate 18 18 18 Blood Pressure 136/82 130/75 130/75 Pulse Oximetry 96 97 97 Oxygen Delivery Method Room Air Room Air Room Air BMI result Body Mass Index 35.4 Course Course Course Narrative: This is a rapid medical exam performed by Benita Lyman NP: Additional HPI, ROS, PE not included below will be deferred to primary provider. Patient is a 24-year-old male presenting with complaint of bilateral testicular pain and swelling. Started on left, now right hurting as well. Denies any difficulty urinating. Plan: UA, CT NG urine, U/S Medical Decision Making Medical Decision Making MDM Narrative: 24-year-old male not sexually active without traumatic pain intermittent testicular discomfort. No torsion. Bilateral tender epididymi with epididymitis changes on ultrasound. Urinalysis clear. No sexual history to suggest STI. Pain control scrotal elevation ice as needed, NSAIDs. Urology follow up Differential Diagnosis Differential Diagnoses: The differential diagnosis associated with the presentation includes Epididymitis, STI, inflammatory or idiopathic. UTI orchitis, torsion Lab Data Labs: Lab Results 10/22/24 Range/Units 00:11 Urine Color Yellow Urine Appearance Clear Urine pH 6.0 (5.0-9.0) Ur Specific [place] >= 1.030 H (1.005-1.025) Urine Protein Negative (Neg-Trace) mg/dL Urine Glucose (UA) Negative (Negative) mg/dL Urine Ketones 15 (Negative) mg/dL Urine Blood Negative (Negative) Urine Nitrite Negative (Negative) Ur Leukocyte Esterase Negative (Negative) Ur N gonorrhoeae DNA (PCR) NOT DETECTED (Not Detect.) Ur Chlamydia DNA (PCR) NOT DETECTED (Not Detect.) Discharge Plan Discharge Clinical Impression: Acute epididymitis Patient Disposition: Home, Self-Care Instructions: Epididymitis (ED) Additional Instructions: DISCHARGE DIAGNOSES: Epididymitis, swelling or inflammation with pain of the epididymal structure both testicles unclear cause. Based on your sexual history this is unlikely to be sexually transmitted disease we have provided antibiotics just in case and if your STI testing comes back positive you will have the prescription waiting for you to cook pickled meat HISTORY OF PRESENTATION: Scrotal pain EMERGENCY DEPARTMENT COURSE,TESTS, TREATMENTS: While in the ED today you had a scrotal ultrasound with signs of epididymal inflammation called epididymitis urinalysis did not suggest UTI and STI testing was sent off not yet resulted DISCHARGE MEDICATIONS: ?[We have made no changes to your regular medication regimen] antibiotics were prescribed to the pharmacy you will pick them up if your STI testing is positive FOLLOW-UP: ?Call your primary or general physician soon as possible to discuss your symptoms, your ED visit and to discuss follow up plans Urology INSTRUCTIONS ?& RETURN PRECAUTIONS: If any symptoms change first call your primary physician, if it is after-hours your primary doctors office should have a provider superintendent sanitation you can speak with. If the symptoms are severe or very concerning to you then call 911 or return to the ED. Use ice on the scrotum for 5 or 10 minutes at a time keep them elevated or comfort with tight-fitting underwear. Take ibuprofen as needed for pain Jesus Chaves MD Emergency Physician [facility] Prescriptions: New azithromycin 1 gram packet 1 g PO QWEEK Qty: 1 0RF doxycycline hyclate 100 mg capsule 100 mg PO BID 10 Days Qty: 20 0RF No Action cefuroxime axetil 500 mg tablet 500 mg PO BID 14 Days Qty: 28 0RF Stand Alone Forms: Work/School Release Interventions: ED Discharge Assessment Last Done: 10/22/24 01:53 Discharge Date/Time: 10/22/24 01:25 Print Language: Icelandic
[2024-10-21 20:27] VITALS: BP 136/82; PULSE 76; RESP 18; TEMP 36.8; O2SAT 96; BMI 35.4
[2024-10-22 00:24] LABS: Appearance Urine Clear; Glucose Urine UA Negative (Negative); PH 6.0 (5.0-9.0); Specific Gravity - Urine >= 1.030 (1.005-1.025)
--- NOTE | 2024-10-22 00:29 | PC.NURSE ---
UA obtained and sent.
[2024-10-22 01:10] VITALS: BP 130/75; PULSE 72; RESP 18; TEMP 36.3; O2SAT 97
[2024-10-22 01:53] VITALS: BP 130/75; PULSE 72; RESP 18; TEMP 36.3; O2SAT 97
[2024-10-22 10:08] LABS: CT PCR Urine NOT DETECTED (Not Detect.); NG PCR Urine NOT DETECTED (Not Detect.)
== END 2024-10-22 01:25 | disposition home or self-care (01) ==
PROVIDERS: Registered Nurse Emergency; Emergency Provider Emergency Medicine
DX: N45.1 Epididymitis (principal); N50.82 Scrotal pain
CPT/HCPCS: 76870; 81003; 87491; 87591; 93975; 99284

== ENCOUNTER → 2024-10-21 20:26 | Outpatient (BNV) | payer OTHER, SELFPAY | PROVIDERS: Visit Provider Radiology Diagnostic Radiology | DX: N50.82 Scrotal pain (principal) | CPT/HCPCS: 93975 ==

== ENCOUNTER 2024-11-13 14:52 | Outpatient (AMB) | payer OTHER, SELFPAY ==
--- NOTE | 2024-11-13 15:19 | A.OFFVIS_ITS ---
Intake Visit Reasons: Epididymitis Intake Note: Patient is present for follow up Urology Rx:none Blood Thinners:none Imaging completed: none Kosher Butcher Required: No Accompanied by: Self / Same As Patient Allergies nut - unspecified Allergy (Verified 10/21/24 20:29) Unknown HPI Comments Details: Micha is a pleasant male. He is a patient of . He is seen for the following urologic conditions - nephrolithiasis - epididymitis Episode of epididymitis Has been recurrent Primarily tail of epididymis on left side On examination does have mild redundancy. Pain had resolved. Discussed natural history of epididymitis. Prescribed Dr. Jordan naproxen Nephrolithiasis Possible prior episode Imaging - 02/03 renal ultrasound no evidence of stones Encourage fluid intake Follow-up p[facility]r.n. [facility] Social History Household Members: Family Housing: House Do you presently have visiting nurse or other home services: No Alcohol intake: never Patient Tobacco Use Status: Never used Tobacco service: No Review of Systems Const Denies chills and Denies fever(s) Card Reports no additional complaints and Denies syncope Resp Denies cough GI Denies abdominal pain and Denies heartburn Reports as per HPI and Denies change in libido Neuro Denies syncope Psych Denies change in libido Endo Denies change in libido Physical Exam Const General: cooperative, healthy appearing, comfortable and no acute distress Orientation/consciousness: patient oriented x3 HEENT Face and sinus: Yes normal facial exam Mouth: moist mucous membranes Neck Neck: Yes normal visual inspection, Yes full ROM and Yes trachea midline Chest Chest palpation & inspection: normal inspection of the chest Resp Effort & Inspection: normal respiratory effort, able to speak in complete sentences and no respiratory distress GI Inspection: Yes normal to inspection Back/Spine/Pelvis Cervical Spine: normal cervical lordosis Thoracic/Lumbar Spine: thoracic and lumbar spine normal to inspection Skin General skin exam: no rashes or lesions noted Neuro General: patient oriented x3, gait normal, tone normal and moves all extremities Extrem General: Yes normal to inspection and Yes capillary refill normal Assessment & Plan Assessment & Plan (1) Epididymitis: Code(s): N45.1 - Epididymitis Category: Medical Plan On demand use of nonsteroidals Orders: Orders AMB Urinalysis Automated 11/13/24 Z13.9 - Encounter for screening, unspecified Medications: New naproxen (Naprosyn) 500 mg PO Q12H PRN 60 tabs 0RF pain 30 days N45.1 - Epididymitis, S39.91XA - Unspecified injury of abdomen, initial encounter Patient Instructions: This note is constructed using voice recognition software. While every effort has been made to ensure accuracy refrigerating technician errors may have been included. Imaging studies, laboratory and physical exam results were discussed and reviewed in detail. No major barriers to patient understanding were identified. An opportunity to ask questions regarding the treatment plan was provided. All questions were answered. The patient expressed understanding and agreement with the above treatment plan. The patient is aware they should contact our office by phone for worsening of their current condition or the appearance of new urologic symptoms. Compliance is encouraged with any medications and followup testing that is ordered. It is a privilege to participate in the urologic care of your patient. If you have any questions or concerns regarding treatment for the above conditions, or other urologic issues, please do not hesitate to contact me. The office telephone contact is [phone]. Sincerely, Dr Peter Bryan MD, [facility] - Urology Compassionate Specialist Care for the Genitourinary System Coding Level of Care Code Est Pt Level 4 (879[address]) Diagnoses Epididymitis N45.1
== END 2024-11-13 16:42 | disposition home or self-care (01) ==
LOC: HO.HUSH 14:52
PROVIDERS: Visit Provider Urology
DX: N45.1 Epididymitis (principal)
CPT/HCPCS: 99214

== ENCOUNTER → 2024-11-14 08:13 | Outpatient (BNV) | payer OTHER, SELFPAY | PROVIDERS: Visit Provider Urology | DX: Z13.9 Encounter for screening, unspecified (principal) | CPT/HCPCS: 81003 ==